=== PATIENT | female | born 1955 | race Caucasian/White ===

== ENCOUNTER 2020-07-07 09:54 | Outpatient (CLI) | payer BC, SELFPAY ==
--- NOTE | ~2020-07-07 | DEXA_ITS ---
Bone Density Report Name: Alice Green Age: 64 Sex: Female Ethnicity: White Date of : 1955 Indication: postmenopausal; height loss; Referring Provider: Carlos Manuel, Radha Borjas Study: Bone densitometry was performed. Exam Date: July 07, 2020 Accession number: [id number] Bone Density: Region BMD T-score Z-score Classification AP Spine (L1, L2, L3) 1.158 1.3 3.1 Normal Femoral Neck (Left) 0.876 0.2 1.8 Normal Total Hip (Left) 0.999 0.5 1.7 Normal Total Hip Bilateral Avg 1.002 0.5 1.8 Normal Femoral Neck (Right) 0.846 0.0 1.5 Normal Total Hip (Right) 1.003 0.5 1.8 Normal World Health Organization criteria for BMD impression classify patients as: Normal (T-score at or above -1.0), Osteopenia (T-score between -1.0 and -2.5), or Osteoporosis (T-score at or below -2.5). 10-year Fracture Risk: FRAX not reported because: All T-scores for Spine Total, Hip Total, Femoral Neck at or above -1.0 Clinical Information Provided by Patient: Patient maximum height was 63 Menopause Age: 52 No regular weight bearing exercise Drinks caffeinated beverages Onset of menses at age 12 Number of children 2 Impression: The patient has normal bone mass. Discussion: BONE DENSITY IS ABOVE THE MINIMUM DESIRABLE LEVEL AT ALL SKELETAL SITES TESTED. This patient?s bone mineral density is above the minimum desirable level (T-score -1.0 or better) at all sites measured. The patient should follow a healthful lifestyle (good nutrition with adequate calcium and vitamin D, and appropriate weight-bearing exercise). Follow-Up: Consider repeating this study in 5 years or sooner if there is some new clinical indication. Reported by: DEVIKA on 07/07/2020 10:18:00 AM. Reviewed, dictated and finalized at location A. [facility]
== END 2020-07-07 09:55 | disposition home or self-care (01) ==
LOC: ANHIMG 09:59
PROVIDERS: PCP Family Medicine; Visit Provider Nurse Practitioner Obstetrics & Gynecology
DX: Z13.820 Encounter for screening for osteoporosis (principal)
CPT/HCPCS: 77080

== ENCOUNTER 2021-02-26 09:33 | Outpatient (CLI) | payer BC, SELFPAY ==
--- NOTE | 2021-02-26 09:59 | ECG_ITS ---
Measurements Intervals [place] Rate: 80 P: 48 GA: 163 QRS: 30 QRSD: 88 T: 42 QT: 352 QTc: 407 Interpretive Statements SINUS RHYTHM DELAYED PRECORDIAL R/S TRANSITION LOW QRS VOLTAGE IN PRECORDIAL LEADS BORDERLINE ECG Electronically Signed On 02-26-2021 17:11:27 CDT by Arpan Byrne D.O.
[2021-02-26 10:05] LABS: Anion Gap 8 mmol/L (8-16); Blood Urea Nitrogen 22 mg/dL (7-17); Calcium 10.1 mg/dL (8.4-10.2); Carbon Dioxide 30 mmol/L (22-30); Chloride 104 mmol/L (98-107); Estimated Glomerular Filt Rate > 60; Glucose 171 mg/dL (65-110); Potassium 4.2 mmol/L (3.4-5.0); Sodium 142 mmol/L (137-145)
== END 2021-02-26 09:34 | disposition home or self-care (01) ==
LOC: ANHCARD 09:36
PROVIDERS: PCP Family Medicine; Visit Provider Anesthesiology
DX: Z01.818 Encounter for other preprocedural examination (principal); E11.9 Type 2 diabetes mellitus without complications; R94.31 Abnormal electrocardiogram [ECG] [EKG]
CPT/HCPCS: 36415; 80048; 93005

== ENCOUNTER 2021-03-04 01:38 | Day surgery (SDC) | payer BC, SELFPAY ==
[2021-02-21 10:32] VITALS: BMI 33.5
--- NOTE | 2021-03-03 10:40 | WPDANESEPPF ---
Anes - Initial Pre Proc Eval Procedure: Operation Date: 03/04/21 09:00 Proposed Procedures p Lapidus Bunionectomy Left Foot, Moshe Phalangeal Osteotomy Left Hallux - Mark Kline JR, MD Date/Time: 03/03/21 10:40 Surgeon: Mark Kline JR, MD Pre Op Diagnosis: Painful Bunion Left Foot Patient Data Age: 65 Gender: F Height: 1.57 m Weight: 83.18 kg Allergies Allergy/AdvReac Type Severity Reaction Status Date / Time ampicillin AdvReac Unknown Rash Verified 03/04/21 07:15 erythromycin base AdvReac Unknown Rash Verified 03/04/21 07:15 Penicillins AdvReac Unknown Rash Verified 03/04/21 07:15 Home Medications Medication Instructions Recorded Confirmed Type metformin 500 mg tablet,extended 500 mg PO BID #180 tablet 12/13/20 03/04/21 Rx release 24 hr rizatriptan 10 mg tablet See Rx Instructions PO .COMPLEX 01/12/21 03/04/21 Rx #27 tablet levothyroxine 88 mcg PO QAM 02/21/21 03/04/21 History Patient hx anesthesia problems: none Family hx anesthesia problems: none PMFSH Past Medical History Medical History (Updated 03/04/21 @ 08:19 by Jose Maria Sellers, ) Acute bronchitis Adult BMI 33.0-33.9 kg/sq m BMI 34.0-34.9,adult Chronic headaches Colon cancer screening Normal colonoscopy with Dr. Reyes at age 61 with recheck in 10 years Controlled diabetes mellitus, without long-term current use of insulin COVID-19 (~02/13/20) Diabetes type 2, controlled Encounter for wellness examination in adult GERD (gastroesophageal reflux disease) Hypersomnia Hypothyroidism, unspecified Irritable bowel syndrome with diarrhea Migraine without aura and responsive to treatment Mixed hyperlipidemia Osteoarthritis involving multiple joints on both sides of body Screening for osteoporosis (07/07/20) T-score 1.16 of the spine and 1.0 left hip and 1.0 right hip Seasonal allergic rhinitis Skin lesion Thyroid disorder Surgical History Surgical History H/O section (~1986) 2 one in 1986 and one in 1987 History of cholecystectomy (~1994) Hx of LASIK (~2001) Family History Family History Mother , 53 Breast cancer, Onset Age: 53 Father , 82 Throat cancer Hypertension Grandparent Breast cancer Sibling Throat cancer Liver failure Sibling Hypertension Social History Social History Smoking status: Never smoker Second hand tobacco smoke exposure: No Alcohol intake: never Substance use: never Substance use type: does not use Living arrangements: with family Spiritual care concerns: No Anes - Eval Final PreProcedure Day of Procedure 03/03/21 10:40 Patient weight: obese Heart: regular rate and rhythm Lungs: clear to auscultation and normal air movement Airway: Mallampati scale class II Neurological: alert and oriented Last oral intake: >/= 8 hours ASA classification: III Emergent: no Anesthetic plan: proceed Anesthesia type and monitoring: general GIVS and standard monitoring Informed Consent: The patient's anesthetic plan and its attendant risks and benefits were discussed with the patient/family/POA. Questions were solicited and answers provided to the satisfaction of the patient/family/POA.
[2021-03-04] VITALS (9 sets, daily range): BP systolic 121–147; BP diastolic 58–74; PULSE 65–90; RESP 9–20; TEMP 36.3–36.9; O2SAT 95–100; BMI 33.5
--- NOTE | ~2021-03-04 | XR_ITS ---
EXAMINATION: XR surgery orthopedic DATE: 03/04/2021 10:35 INDICATION: Left foot bunion. TECHNIQUE: 2 intraoperative fluoroscopic views of left foot were obtained. I was not present. Fluoros copy exposure time was 46 seconds. COMPARISON: None. FINDINGS: There are surgical changes of bunionectomy. There are changes of osteotomy of first proxima l phalanx with staple fixation. There are changes of arthrodesis of first tarsometatarsal joint with plate and screw fixation. A screw also passes through the first metatarsal into the medial, middle, a nd lateral cuneiforms. IMPRESSION: 1. Bunionectomy. Reviewed, dictated and finalized at location A. IMPRESSION: 1. Bunionectomy.
--- NOTE | 2021-03-04 07:11 | WPDHPUPDATE1 ---
History and Physical Update Update Date/Time: 03/04/21 07:11 History and Physical has been reviewed, including an updated exam of the patient. There are NO changes in the patient's condition. Risks, benefits, and alternatives have been discussed and questions answered. Patient agrees to proceed with procedure.
--- NOTE | 2021-03-04 07:18 | WPDANESPNB ---
Anes - Peripheral Nerve Block Date/Time: 03/04/21 07:18 I have discussed with the patient/family/POA the placement of a peripheral nerve block for post-operative pain management, including associated risks, benefits, complications, and side effects. Alternative methods of post-operative analgesia were detailed. Questions were solicited and answers provided to the satisfaction of the patient/family/POA. Time-Out: A pre-procedural Time-Out was completed immediately before starting the procedure and confirmed: Patient Identification, Site, Procedure, Patient Position and the Availability of Requisite Equipment. Clinical Indications: Acute post-operative pain management requested by the operative surgeon. Nerve Block Insertion Note Anes-nerve block: posterior fossa sciatic left and adductor canal left Patient position: supine (for adductor canal) and other (right lateral for popliteal) Skin prep: chlorhexidine Needle: 22 gauge, stimulating, insulated echogenic needle. Needle length: 80 mm Technique: nerve stimulation lost at (mA) (for popliteal lost at 0.2) and ultrasound Injectate: bupivacaine 0.5% with epi 5 mcg/ml (20 mL for popliteal, 10 mL for adductor canal (no epi)) Observations: tolerated well Complications: none Procedure start time:: 899 Procedure end time:: 906
[2021-03-04] MEDS: LACTATED RINGERS 1,000 ML 30 ML IV CONT ×2 (07:53→11:20)
[2021-03-04 07:57] LABS: Glucose Point of Care 127 mg/dl (65-105)
[2021-03-04] MEDS: ceFAZolin 2 GM/D5W 50 ML 2 GM/50 ML BAG IVPB (09:11)
[2021-03-04 11:12] LABS: Glucose Point of Care 133 mg/dl (65-105)
--- NOTE | 2021-03-04 11:23 | W.PM.PROC2 ---
Procedure Note - Detailed Date of Procedure 03/04/21 Pre-op Diagnosis Painful Bunion Left Foot Post-op Diagnosis same Procedure Performed 1. Lapidus bunionectomy left foot 2. Moshe phalangeal osteotomy left foot Surgeon Mark Kline JR, ELIDIAM Anesthesia general and regional (Popliteal fossa block left foot) Indications Painful bunion left foot Description of Procedure Under mild sedation, the patient was brought to the operating room, placed on the operating table in the supine position. A pneumatic ankle tourniquet was placed about the patient's ankle. Following general anesthesia and a previous popliteal fossa block, the foot was then scrubbed, prepped, and draped in the usual aseptic manner. An Esmarch bandage was then used to examine the patient's foot and pneumatic ankle tourniquet was then inflated. Surgery began in the following manner. Attention was directed to the dorsal aspect of the 1st metatarsocuneiform of the foot where fluoroscopy was used to identify the joint. A 3 cm incision was made overlying the dorsal aspect of the 1st metatarsocuneiform joint of the foot just medial to the extensor hallucis longus tendon. The incision was then continued deep down through the subcutaneous tissues using sharp and blunt dissection. All bleeders were ligated and cauterized as necessary. At this point, the extensor tendon was identified and reflected laterally. Next, the periosteum and capsular incision was made at the full length of the skin incision exposing the medial cuneiform as well as the base of the 1st metatarsal. Next, a sagittal bone saw was introduced from dorsal to plantar across the 1st metatarsocuneiform joint in order to free up any ankylosed portions of the joint and also to release any adhesions. Two Steinmann Pins were driven from dorsal to plantar 1cm proximal and distal to the 1st metatarsal cuneiform joint. The provided curved osteotome and curette was used to resect the cartilage and subchondral bone and a 2.0mm drill bit was used to fenestrate the joint to promote fusion. At this point, a small 2 cm incision was made along the lateral aspect of the 1st metatarsophalangeal joint of the left foot and a lateral release consisting of a lateral capsule incision as well as release of the adductor hallucis tendon with the tenotomy as well as releasing the distal aspect and lateral aspect and proximal aspect of the fibular sesamoid. After this, a lateral release was performed. The hallux was noted to be slightly reduced as far as the track-bound hallux. A 3m incision was made medial to the first metatarsal head extending proximal to the proximal phalanx. A 1.4mm Steinmann pin was driven from medial to lateral across the 1st metatarsal head. Next the Lapifuse positioner was used to obtain 3 plane correction of the hallux abductovalgus deformity. Fluoroscopy was used to make sure that the 1st MPJ was congruous and the sesamoid apparatus was centered under the first metatarsal. Next a 4mm cannulated screw was driven from the medial base of the 1st metatarsal to the central and lateral cuneiform bone. Excellent compression was noted, next a Lapifuse plate was placed dorsal medially along the 1st metatarsal cuneiform joint and 4 locking and one eccentrically drilled non locking screws was used to further compress the joint to ensure arthrodesis. At this point the positioner was removed and fluoroscopy was used to make sure that deformity correction was maintained. The patient still had slight hallux abductus so I made a closing medial base wedge resection from the base of the proximal phalanx and compressed the osteotomy with a [employer] 8mm nitinol compression staple. After the Moshe osteotomy the hallux was noted to be in a rectus position. The periosteum and capsular structures were reapproximated and coapted utilizing horizontal mattress as well as simple interrupted suture fashion technique along the 1st
== END 2021-03-04 13:25 | disposition home or self-care (01) ==
PROVIDERS: PCP Family Medicine; Visit Provider Podiatrist Foot & Ankle Surgery
PROC: (CPT 28299; principal; 2021-03-04 09:00)
DX: M21.612 Bunion of left foot (principal); G89.18 Other acute postprocedural pain; E11.9 Type 2 diabetes mellitus without complications; E78.2 Mixed hyperlipidemia; K21.9 Gastro-esophageal reflux disease without esophagitis; E03.9 Hypothyroidism, unspecified; K58.0 Irritable bowel syndrome with diarrhea; M19.90 Unspecified osteoarthritis, unspecified site; Z86.16 Personal history of COVID-19; Z79.84 Long term (current) use of oral hypoglycemic drugs; E66.9 Obesity, unspecified; Z68.33 Body mass index [BMI] 33.0-33.9, adult
CPT/HCPCS: 28297; 64445; 64447; 36415; 80048; 82948; 93005; C1713; J0690; J2250; J3010; J7120

== ENCOUNTER 2021-05-12 12:46 | Outpatient (CLI) | payer BC, SELFPAY ==
--- NOTE | ~2021-05-12 | US_ITS ---
EXAMINATION: US venous doppler [facility] EXAM DATE: 05/12/2021 13:31 INDICATION: Left lower extremity swelling. TECHNIQUE: Multiple grayscale, color flow and Doppler images of the left lower extremity deep venous system were obtained and reviewed. There is no prior study for comparison. FINDINGS: The left common femoral, femoral and profunda veins demonstrate normal color flow, respirat ory variation, augmentation and compressibility. Compressibility, color flow confirmed within the le ft popliteal, posterior tibial, peroneal, and greater saphenous veins. IMPRESSION: 1. No left lower extremity deep venous thrombosis. Reviewed, dictated and finalized at location B. [facility]
== END 2021-05-12 12:47 | disposition home or self-care (01) ==
PROVIDERS: PCP Family Medicine; Visit Provider Podiatrist Foot & Ankle Surgery
DX: M79.89 Other specified soft tissue disorders (principal)
CPT/HCPCS: 93971

== ENCOUNTER → 2022-07-25 15:11 | Outpatient (CLI) | payer MEDICARE, SELFPAY ==
--- NOTE | ~2022-07-25 | XR_ITS ---
EXAM: XR shoulder RT min 2V DATE: 07/25/2022 15:32 HISTORY: M25.511-Pain in right shoulder 6+months/no injury . COMPARISON: None available. FINDINGS: Decreased mineralization. No fracture or dislocation. No lytic or blastic lesion. Mild AC joint hypertrophy and degenerative change at the glenohumeral joint. No erosion or periosteal change. Soft tissues within normal limits. Calcified right midlung granuloma and right hilar lymph node. Inc idental note of multilevel degenerative disc disease in the thoracic spine. IMPRESSION: Mild polyarticular osteoarthritis. Reviewed, dictated and finalized at location K. [facility]
== END ==
PROVIDERS: PCP Family Medicine; Visit Provider Family Medicine
DX: M25.511 Pain in right shoulder (principal); M19.011 Primary osteoarthritis, right shoulder
CPT/HCPCS: 73030

== ENCOUNTER 2022-08-31 14:00 | Outpatient (RCR) | payer MEDICARE, SELFPAY ==
--- NOTE | 2022-08-17 15:54 | PTOPEVAL1 ---
Assessment and note entered by Jeffrey Hines, PT Evaluation Information Assessment Status Evaluation Diagnosis Pain in R shoulder. Onset 4-5 months ago. Subjective Information Patient reports she is experiencing increased pain in her shoulder going down the arm the further she reaches back into extension and internal rotation. The pain is normally felt in the deltoid but ocassionally down to the mid forearm. The patient is unable to scrub her back or clasp her bra with the R shoulder she is R handed. Reported Pain Level Pain Score 0: Self Report Assessment PT Clinical Summary Nidhi is a 66 year old female coming into the clinic with a diagnosis of R shoulder pain. She has a positive lift off and Neers test with negative empty can and resisted shoulder abduction. Decreased range of motion of internal rotation, shoulder abduction, and flexion. No significant weakness, but poor posture with rounded shoulders and a forward head. Physical therapy will work on improving her muscular alignment and posture to put her shoulder in better position along with stretching of the posterior capsule and pec muscles. Plan of Care Interventions Electrical Stimulation,Gait Training,Hot Pack/Cold Pack,Manual Therapy,Neuro Re-education,Patient/ Caregiver Education,Therapeutic Activities, Therapeutic Exercise,Ultrasound Other Interventions taping PT Services Indicated Yes Treatment Frequency and 1-2x/wk for 4 weeks Duration These treatments will address the objective and functional deficits as defined above. The patient will be advanced safely and appropriately in order for the patient to progress towards his/her prior level of function. Additional exercises will be introduced and as well as a comprehensive home exercise program upon discharge, if needed, ?to ensure carryover of functional gains achieved in the clinic. This treatment plan has been reviewed and agreement upon by the patient.
--- NOTE | 2022-09-07 15:32 | PCPTNOTE ---
Patient did not show up for scheduled appointment this date. Called number on file, unable to leave voicemail due to the mailbox being full. Pt's next appointment is on 09/14/22 @13:30 for a Reevaluation. This is Pt's first N/S.
--- NOTE | 2022-09-27 13:55 | PCPTNOTE ---
Patient called & cancelled scheduled appointment this date due to not feeling well.
--- NOTE | 2022-10-16 09:32 | PCPTNOTE ---
Admitting Provider: Attending Provider: Monico Lay MD Patient:Alice Ferro Date of :1955 Patient has not returned for any further treatments since 08/31/2022, therefore (he/she) will be discharged at this time. Patient?s initial visit was on 08/17/2022 13:30 and she had a total of ____2____ visits. The goals have been not met. Thank you for referring this patient to [facility]. Please review, sign, date and return this discharge summary ERROL. I have been updated about the patient's current status and I agree with discharge from the above service at this time. Referring Physician Date
== END 2022-10-16 11:41 | disposition home or self-care (01) ==
LOC: ANHPT 14:00
PROVIDERS: PCP Family Medicine; Visit Provider Family Medicine
DX: M25.511 Pain in right shoulder (principal)
CPT/HCPCS: 97110; 97140; 97161; 97530; 99199

== ENCOUNTER 2024-07-09 12:39 | Emergency (ER) | payer MEDICARE, SELFPAY ==
--- NOTE | ~2024-07-09 | XR_ITS ---
EXAMINATION: XR knee LT min 4V DATE: 07/09/2024 13:28 INDICATION: Left knee pain. TECHNIQUE: 4 views of left knee were obtained. COMPARISON: None. FINDINGS: There is varus attenuation the knee. No fracture. There is moderate osteoarthritis of media l compartment and mild osteoarthritis of lateral and patellofemoral compartments. There is a small kn ee joint effusion. IMPRESSION: 1. Moderate left knee osteoarthritis. 2. Small left knee joint effusion. Reviewed, dictated and finalized at location A. UP MACHINE OPERATOR
--- NOTE | ~2024-07-09 | US_ITS ---
EXAMINATION: US venous doppler [facility] DATE: 07/09/2024 13:21 INDICATION: Left lower limb pain. TECHNIQUE: Grayscale ultrasound images without and with compression and Doppler ultrasound images of the left lower extremity veins were obtained. COMPARISON: Ultrasound 05/12/2021 FINDINGS: The visualized portions of left common femoral vein, profunda (deep) femoral vein, femoral vein, popl iteal vein, peroneal veins, posterior tibial veins, and greater saphenous vein outflow are patent. IMPRESSION: 1. No deep venous thrombosis. Reviewed, dictated and finalized at location A. E AND WELD INSPECTOR
[2024-07-09 12:40] VITALS: BP 148/89; PULSE 88; RESP 16; TEMP 36.4; O2SAT 98
--- NOTE | 2024-07-09 12:45 | ED_ITS ---
HPI - Extremity Problem General Chief complaint: Extremity Problem,Nontraumatic Stated complaint: left knee pain Time Seen by Provider: 07/09/24 13:42 Focused HPI: 68-year-old female presents to the ED for a DVT rule out in her left lower extremity. Patient states she has known arthritis in her knees and has chronic pain, however began having increased knee pain a few days ago. She went to her PCP and was advised to come to the ED for DVT rule out. She is reporting pain to the posterior aspect of her knee and states it feels swollen within her joint. She has a known history of arthritis. No lower extremity edema, no recent surgeries or hospitalization, history of VTE. Denies fever. GENERAL: Well-appearing, well-nourished, and in no acute distress. HEAD: Normocephalic, atraumatic. CHEST: Clear to auscultation. ?No respiratory distress. EXT: Minimal tenderness to the posterior aspect of the knee, otherwise no tenderness to the remainder of extremity. No edema. Full active and passive range of motion. DP pulse 2 +. Sensation intact. Extremities pink, warm and dry HEART: Regular rate and rhythm.? NEURO: ?Alert and oriented x3. Patient screened in triage and initial orders placed.? ?Additional care and disposition to be based upon?diagnostic testing and treatment. History of Present Illness HPI Narrative: Agree with the above triage note. Related Data Allergies Allergy/AdvReac Type Severity Reaction Status Date / Time ampicillin AdvReac Unknown Rash Verified 06/21/23 13:38 erythromycin base AdvReac Unknown Rash Verified 06/21/23 13:38 Penicillins AdvReac Unknown Rash Verified 06/21/23 13:38 Review of Systems Review of Systems: All systems reviewed & are unremarkable except as noted in HPI and below PMFSH Past Medical History Medical History BMI 29.0-29.9,adult Overweight (BMI 25.0-29.9) Lipoma of back (~08/02/23) left lower thoracic area 3 cm Seborrheic keratosis on trunk and scalp BMI 30.0-30.9,adult Benign paroxysmal positional vertigo due to bilateral vestibular disorder At low risk for fall Acute left-sided low back pain without sciatica (~01/2023) Breast cancer screening by mammogram mammogram 11/07/2022 unremarkable. Normal mammogram 11/27/2023. Screening for diabetic retinopathy no diabetic retinopathy on 01/30/2022. No retinopathy on 02/27/2023. Obesity (BMI 30.0-34.9) Right shoulder pain (~11/2021) x-ray of the right shoulder on 07/25/2022 with mild osteoarthritis, osteopenia, degenerative disc disease of the thoracic spine, right mid lung granuloma. BMI 32.0-32.9,adult Bunion, left foot Diabetes type 2, controlled Irritable bowel syndrome with diarrhea BMI 34.0-34.9,adult Skin lesion Screening for osteoporosis (07/07/20) T-score 1.16 of the spine and 1.0 left hip and 1.0 right hip Adult BMI 33.0-33.9 kg/sq m COVID-19 (~02/13/20) Acute bronchitis Controlled diabetes mellitus, without long-term current use of insulin Glucose 128 with hemoglobin A1c 6.1 on 01/14/2022. Glucose 124 with hemoglob in A1c 6.3 on 07/19/2022. fasting glucose 125 with hemoglobin A1c 6.1 and urine microalbumin ratio of 11 on 01/25/2023. glucose 119 with hemoglobin A1c 6.0 on 07/31/2023. glucose 107, hemoglobin A1c 6.2, GFR 82, microalbumin ratio of 12 on 02/20/2024. Migraine without aura and responsive to treatment Encounter for wellness examination in adult Colon cancer screening Normal colonoscopy with Dr. Reyes at age 61 with recheck in 10 years Hypersomnia Mixed hyperlipidemia Total cholesterol 188, triglycerides 96, HDL 59 and LDL 110 on 01/14/2022. Cholesterol 201, triglycerides 121, HDL 67, LDL 111 on 07/19/2022. cholesterol 201, HDL 68, triglycerides 104, LDL 112 with ratio 3.0 on 01/25/2023. Cholesterol 191, HDL 64, triglycerides 87, LDL 109 with ratio 3.0 on 07/31/2023. Cholesterol 190, triglycerides 110, HDL 71, LDL 98 with ratio 2.7 on 02/20/2024. Hypothyroidism, unspecified TSH 0.89 with free T4 at 1.4 on 01/14/2022. TSH 0.57 on 01/25/2023. TSH 1.13 on 02/20/2024. Osteoarthritis involving multiple joints on both sides of body Abnormal fasting glucose Seasonal allergic rhinitis GERD (gastroesophageal reflux disease) Thyroid disorder Chronic headaches Surgical History Surgical History H/O section (~1986) 2 one in 1986 and one in 1987 Hx of LASIK (~2001) History of cholecystectomy (~1994) Family History Family History Mother , 53 Breast cancer, Onset Age: 53 Father , 82 Throat cancer Hypertension Grandparent Breast cancer Sibling Throat cancer Liver failure Sibling Hypertension Social History Social History Smoking status: Never smoker Second hand tobacco smoke exposure: No Alcohol intake: never Substance use: never Substance use type: does not use Lack of Transportation: No Lack of Food: Never True Current Housing: I Have Housing Concerned About Future Housing: No Difficulty Paying Gas/Electric Bills: No Difficulty Paying for Meds: No Currently Unemployed: No Education: High School Diploma/GED Difficulty w/ Childcare or Family Care: No Living arrangements: with family Spiritual care concerns: No Exam Narrative: GENERAL: Well-appearing, well-nourished, and in no acute distress. HEAD: Normocephalic, atraumatic. EYES: EOMI. ENT: Nares clear, no rhinorrhea or epistaxis. Mucous membranes moist. NECK: Supple. CHEST: Clear to auscultation. No respiratory distress. HEART: Regular rate and rhythm. No murmur heard. Normal peripheral pulses. EXTREMITIES: Minimal tenderness to the posterior aspect of the left knee, otherwise no tenderness throughout, no edema, no overlying skin changes or deformity. Patient has full active and passive range of motion with these. DP pulse 2 +. Sensation intact. No tenderness remainder of lower extremity. No edema to lower extremity. No overlying warmth or erythema SKIN: Warm, dry, no rash. NEURO: No focal deficits. Alert and oriented x3 Course Vital Signs Vital signs: Vital Signs Temperature 97.6 F 07/09/24 12:40 Pulse Rate 88 07/09/24 12:40 Respiratory Rate 16 07/09/24 12:40 Blood Pressure 148/89 H 07/09/24 12:40 Pulse Oximetry 98 07/09/24 12:40 Oxygen Delivery Room Air 07/09/24 12:40 Temperature 97.6 F 07/09/24 12:40 Pulse Rate 88 07/09/24 12:40 Respiratory Rate 16 07/09/24 12:40 Blood Pressure 148/89 H 07/09/24 12:40 Pulse Oximetry 98 07/09/24 12:40 Oxygen Delivery Room Air 07/09/24 12:40 MDM - Extremity (Nontraumatic) MDM Narrative Medical decision making narrative: 68-year-old female with history of known arthritis to her knees presents to the ED for left knee pain and DVT rule out per her PCP. Triage vitals are stable. Exam is significant for the above. Notably patient has minimal tenderness to the posterior aspect of the knee. She has full active and passive range of maryuri on of the knee with ease. She is neurovascularly intact. No edema. No overlying warmth or erythema concerning for septic arthritis. X-ray of the knee shows a moderate amount of osteoarthritis as well as a small knee joint effusion. Lower extremity duplex is negative for DVT. Patient was updated on workup. She is given an Danilo wrap, advised Tylenol for pain, RICE, and follow-up with PCP. Return precautions discussed. She is agreeable to plan verbalized understanding. Discharged in stable condition. Discharge Plan Discharge Clinical Impression: Effusion of knee joint, left Osteoarthritis of left knee Qualifiers: Osteoarthritis type: unspecified Qualified Code(s): M17.12 - Unilateral primary osteoarthritis, left knee Patient Disposition: Home, Self-Care Condition: Stable Instructions: Antibiotic Form, Swollen Knee Joint (ED), Knee Pain (ED), Arthritis (ED) Additional Instructions: Your evaluated for knee pain and to rule out a DVT. The ultrasound shows no evidence of DVT. The x-ray shows moderate arthritis as well as a small amount of swelling in the knee joint. This is likely secondary to arthritis. Please rest, ice, elevate and keep her knee compressed. Take Tylenol as needed for pain as directed on the bottle. Follow up with her primary care provider. Return to the emergency department if you develop inability to move your knee, fever, warmth or redness over your knee joint, swelling to the rest of your leg, calf pain, or other concerning symptoms. Patient Language: Tanzanian Prescriptions: No Action meclizine 25 mg tablet 25 mg PO TID PRN (Reason: vertigo) Qty: 60 0RF levothyroxine 88 mcg tablet 88 mcg PO QAM Qty: 90 3RF metformin 500 mg tablet extended release 24 hr 500 mg PO BID Qty: 180 3RF rizatriptan [Maxalt] 10 mg tablet See Rx Instructions PO .COMPLEX Qty: 9 11RF Rx Instructions: take 1 tab at onset of headache; if no relief may repeat 1 tab in 2hr; max = 3 tabs/day (24hr) PO cyclobenzaprine 5 mg tablet 5 mg PO TID PRN (Reason: muscle spasm) Qty: 60 11RF Follow-up/Referrals: Monico Lay MD [Primary Care Provider] -
== END 2024-07-09 14:00 | disposition home or self-care (01) ==
LOC: ANHED 14:00
PROVIDERS: Emergency Provider Physician Assistant; PCP Family Medicine
DX: M25.462 Effusion, left knee (principal); M17.12 Unilateral primary osteoarthritis, left knee; M79.89 Other specified soft tissue disorders
CPT/HCPCS: 73564; 93971; 99284

== ENCOUNTER 2024-11-27 00:13 | Day surgery (SDC) | payer MEDICARE, SELFPAY ==
[2024-11-20 13:00] VITALS: BMI 30.2
--- OUTSIDE RECORDS SUMMARY | 2024-11-27 00:16 | XMS_ITS | Encounter Summary ---
Author Organization [employer] Address [address] [place] [address] Care Team Providers Care Automotive Service Management Teacher Name Role Phone Marin Mcpherson MD Primary Care Provider [phone] Encounter Details Date Type Department Care Team (Latest Contact Info) Description 06/13/2005 Outpatient Historical HIS PATIENT IN A BED Gustavo Ojeda MD NO ADDRESS ON FILE OTOSCLEROSIS NOS (Primary Dx) Social History Tobacco Use Types Packs/Day Years Used Date Smoking Tobacco: Never Assessed Comments Unknown Sex and Gender Information Value Date Recorded Sex Assigned at Not on file Legal Sex Female 3:28 AM MEDICAL SCHEDULER Gender Identity Not on file Sexual Orientation Not on file documented as of this encounter Plan of Treatment Not on file documented as of this encounter Procedures Procedure Name Priority Date/Time Associated Diagnosis Comments CBC WITH DIFFERENTIAL Routine 06/12/2005 11:35 AM MEDICAL SCHEDULER CBC WITH DIFFERENTIAL Routine 06/12/2005 11:35 AM MEDICAL SCHEDULER BASIC METABOLIC PANEL Routine 06/12/2005 11:35 AM MEDICAL SCHEDULER documented in this encounter Results * (ABNORMAL) BASIC METABOLIC PANEL (06/12/2005 11:35 AM MEDICAL SCHEDULER) GLUCOSE 126(H) 65 - 109 mg/dL INTERFACE SYSTEM CREATININE 1.0 0.4 - 1.2 mg/dL INTERFACE SYSTEM CALCIUM 9.0 8.6 - 10.2 mg/dL INTERFACE SYSTEM BUN 15 6 - 20 mg/dL INTERFACE SYSTEM SODIUM 140 135 - 145 mmol/L INTERFACE SYSTEM POTASSIUM 3.7 3.5 - 4.9 mmol/L INTERFACE SYSTEM CHLORIDE 103 96 - 108 mmol/L INTERFACE SYSTEM CO2 29 22 - 30 mmol/L INTERFACE SYSTEM 06/12/2005 11:3 5 AM MEDICAL SCHEDULER Gustavo Ojeda MD CHEMISTRY ORDERABLES Final Resu lt Performing Organization Address [facility] Phone Number INTERFACE SYSTEM Refer to clinic/hospital department * CBC WITH DIFFERENTIAL (06/12/2005 11:35 AM MEDICAL SCHEDULER) NEUTROPHILS 51 45 - 70 % INTERFAC E SYSTEM LYMPHOCYTES 41 16 - 45 % INTERFAC E SYSTEM MONOCYTES 7 3 - 13 % INTERFACE SYSTEM EOSINOPHILS 1 0 - 7 % INTERFAC E SYSTEM BASOPHILS 1 0 - 2 % INTERFACE SYSTEM NEUTROPHIL ABSOLUTE 2.65 1.90 - 7.00 K/uL INTERFACE SYSTEM LYMPHOCYTE ABSOLUTE 2.14 0.70 - 4.50 K/uL INTERFACE SYSTEM MONOCYTE ABSOLUTE 0.35 0.10 - 1.30 K/uL INTERFACE SYSTEM EOSINOPHIL ABSOLUTE 0.06 0.00 - 0.70 K/uL INTERFACE SYSTEM BASOPHILS ABSOLUTE 0.04 0.00 - 0.20 K/uL INTERFACE SYSTEM 06/12/2005 11:3 5 AM MEDICAL SCHEDULER Gustavo Ojeda MD HEMATOLOGY ORDERABLES Final Res ult Performing Organization Address [facility] Phone Number INTERFACE SYSTEM Refer to clinic/hospital department * CBC WITH DIFFERENTIAL (06/12/2005 11:35 AM MEDICAL SCHEDULER) WBC 5.2 4.0 - 9.8 K/uL INTERFACE SYSTEM RBC 4.15 3.90 - 4.90 M/uL INTERFACE SYSTEM HEMOGLOBIN 12.9 11.8 - 14.8 g/dL INTERFACE SYSTEM HEMATOCRIT 38.9 35.5 - 44.0 % INTERFACE SYSTEM MCV 93.7 82.0 - 99.0 fL INTERFACE SYSTEM MCH 31.1 27.2 - 32.6 pg INTERFACE SYSTEM MCHC 33.2 31.5 - 35.5 % INTERFACE SYSTEM RDW 13.5 11.5 - 14.5 % INTERFACE SYSTEM RDW-STDEV 46.6 37.1 - 48.7 fL INTERFACE SYSTEM PLATELETS 303 140 - 350 K/uL INTERFACE SYSTEM MPV 10.1 9.3 - 12.4 fL INTERFACE SYSTEM 06/12/2005 11:3 5 AM MEDICAL SCHEDULER us Gustavo Ojeda MD HEMATOLOGY ORDERABLES Final Res ult INTERFACE SYSTEM Refer to clinic/hospital department documented in this encounter Visit Diagnoses Diagnosis Otosclerosis, unspecified- Primary documented in this encounter Care Teams Automotive Service Management Teacher Relationship Specialty Start Date End Date Marin Mcpherson MD [address] [place] [address] PCP - General 06/13/05 documented as of this encounter
--- OUTSIDE RECORDS SUMMARY | 2024-11-27 00:16 | XMS_ITS | Clinical Summary ---
Author Organization [employer] Address [address] [address] Attn: Epic Prelude ADT JAIME GALLO [address] Care Team Providers Care Blood Bank Business Manager Name Role Phone Marin Mcpherson MD Primary Care Provider [phone] Social History Tobacco Use Types Packs/Day Years Used Date Smoking Tobacco: Never Assessed Comments Unknown Sex and Gender Information Value Date Recorded Sex Assigned at Not on file Legal Sex Female 3:28 AM DOWN FILLER Gender Identity Not on file Sexual Orientation Not on file Plan of Treatment Health Maintenance Due Date Last Done Comments DTAP/TDAP/TD VACCINES (1 - Tdap) 1973 BREAST CANCER SCREENING 1994 COLORECTAL SCREENING 09/05/1999 Colorectal Cancer Screening 09/05/1999 FIT-DNA Q 3 years 09/05/1999 FIT/FOBT Q 1 year 09/05/1999 Flex Sig/CT Colonography Q 5 years 09/05/1999 PNEUMOCOCCAL VACCINE 50+ YEARS (1 of 1 - PCV) 09/05/19 05 ZOSTER VACCINE (1 of 2) 2004 OSTEOPOROSIS SCREENING 09/05/2019 INFLUENZA VACCINE (#1) 2024 RSV VACCINE (60+ or ) (1 - 1-dose 75+ series) 2029 Care Teams Blood Bank Business Manager Relationship Specialty Start Date End Date Marin Mcpherson MD [address] [place] [address] PCP - General 06/13/05
--- OUTSIDE RECORDS SUMMARY | 2024-11-27 00:16 | XMS_ITS | Referral Summary ---
Author Organization [facility] Address [address] [place] [address] Care Team Providers Care Medical Oncologist Name Role Phone Monico Lay MD Primary Care Provider [phone] Allergies Active Allergy Reactions Criticality Noted Date Comments Ampicillin Other (See comments) Low 09/08/2020 Erythromycin Rash Medium 02/27/2017 Erythromycin Base Unknown 09/08/2020 Penicillins Rash Medium 02/27/2017 Medications levothyroxine (SYNTHROID, LEVOTHROID) 88 mcg tablet Take 1 tablet (88 mcg total) by mouth every morning 3 8 Active metFORMIN XR (GLUCOPHAGE XR) 500 mg 24 hr tablet Take 1 tablet (500 mg total) by mouth 2 (two) times a day 4 8 Active rizatriptan (MAXALT) 10 mg tabletIndicatio ns:Migraine TAKE 1 TABLET ONCE A DAY NEEDED 11 8 Active levothyroxine (SYNTHROID) 175 mcg tablet Active Farxiga 10 mg tablet Take 1 tablet (10 mg total) by mouth daily 1 Active meloxicam (MOBIC) 15 mg tablet Take 1 tablet (15 mg total) by mouth daily as needed 3 Active oxyCODONE-aceta minophen (PERCOCET) 5-325 mg per tablet oxycodone-aceta minophen 5 mg-325 mg tablet TAKE 1 TABLET BY MOUTH EVERY 4 TO 6 HOURS NEEDED FOR PAIN AFTER SURGERY Active rivaroxaban (Xarelto) 10 mg tablet Xarelto 10 mg tablet TAKE 1 TABLET BY MOUTH EVERY DAY START 24HRS AFTER SURGERY Active diclofenac DR (VOLTAREN) 75 mg EC tablet diclofenac sodium 75 mg tablet,delayed release TAKE 1 TABLET BY MOUTH EVERY DAY Active Active Problems Problem Noted Date Diagnosed Date Family history of breast cancer 11/04/2021 Fibrocystic breast changes of both breasts 03/28 Social History Tobacco Use Types Packs/Day Years Used Date Smoking Tobacco: Former Smokeless Tobacco: Never Tobacco Cessation:Counseling Given: Not Answered Alcohol Use Standard Drinks/Week Comments No 0 (1 standard drink = 0.6 oz pur e alcohol) Personal Safety Answer Date Recorded Getting School Help Needed Not on file 08/18 Comments No Sex and Gender Information Value Date Recorded Sex Assigned at Not on file Legal Sex Female 7:59 AM FACTORY WORKER Gender Identity Not on file Sexual Orientation Not on file Last Filed Vital Signs Vital Sign Reading Time Taken Comments Blood Pressure - - Pulse - - Temperature - - Respiratory Rate - - Oxygen Saturation - - Inhaled Oxygen Concentration - - Weight 90.7 kg (200 lb) 11/07/2022 1:42 PM CDT Height 160 cm (5' 3) 11/07/2022 1:42 PM CDT Body Mass Index 35.43 11/07/2022 1:42 PM CDT Plan of Treatment Not on file Procedures Procedure Name Priority Date/Time Associated Diagnosis Comments SCREENING MAMMOGRAM BILATERAL W HERO Schedule Routine, Read Routine (OP Routine) 11/27/2023 3:02 PM CDT Family history of breast cancer Encounter for screening mammogram for malignant neoplasm of breast from Last 3 Months or Most Recently Relevant to Health Maintenance Results * Screening Mammogram Bilateral W Hero (11/27/2023 3:02 PM CDT) Anatomical Region Laterality Modality Breast Bilateral Mammography Narrative 11/28/2023 10:11 AM CDT Mammogram Technique: Bilateral Digital Breast Tomosynthesis, Bilateral C-view 2D Screening mammogram. Views obtained: bilateral craniocaudal and bilateral mediolateral oblique. Computer Aided Detection was performed. Mammogram Findings: The present examination has been compared to prior imaging studies performed at [facility] on 09/08/2020, 11/02/2021 and 11/07/2022. There are scattered areas of fibroglandular density. There is no suspicious abnormality in either breast. Impression: There is no mammographic evidence of malignancy. Annual screening mammography is recommended. OVERALL FINAL ASSESSMENT: BI-RADS CATEGORY 1: Negative. Procedure Note Sonia Clark MD - 11/28/2023 Mammogram Technique: Bilateral Digital Breast Tomosynthesis, Bilateral C-view 2D Screening mammogram. Views obtained: bilateral craniocaudal and bilateral mediolateral oblique. Computer Aided Detection was performed. Mammogram Findings: The present examination has been compared to prior imaging studies performed at [facility] on 09/08/2020, 11/02/2021 and 11/07/2022. There are scattered areas of fibroglandular density. There is no suspicious abnormality in either breast. Impression: There is no mammographic evidence of malignancy. Annual screening mammography is recommended. OVERALL FINAL ASSESSMENT: BI-RADS CATEGORY 1: Negative. Mary Rogers NP IMG MAMMO PROCEDURES Fin al Result from Last 3 Months or Most Recently Relevant to Health Maintenance Insurance [employer] CHOICE MEDICARE PPO [facility] CHOICE PLUS CHOICE PRF PPO [place] ANTH ACCESS BLUE TRADITIONAL [employer]OS MEDICARE MEDICARE [employer] CHOICE MEDICARE PPO Care Teams Medical Oncologist Relationship Specialty Start Date End Date Monico Lay MD [address] [address] PCP - General 08/15/19
--- OUTSIDE RECORDS SUMMARY | 2024-11-27 00:16 | XMS_ITS | Clinical Summary ---
Author Organization [facility] Address [address] [place] [address] Care Team Providers Care Inventory Coordinator Name Role Phone Marin Mcpherson MD Primary Care Provider [phone] Source Comments [facility],non-owned Affiliates and Associated Physician Practices is amultiple site organization consisting of ambulatory clinics and hospital sitesin [place], [place], [place] and [place]. This disclosure is being madepursuant to the Care Everywhere program and may not contain all information available regarding this patient. Last updated 18.[facility] Allergies Active Allergy Reactions Criticality Noted Date Comments Erythromycin 06/26/2016 Penicillins 06/26/2016 Medications * Be aware that medications may not be up to date on this document. Alwaysverify current medications with the patient. LEVOTHYROXINE SODIUM PO Active Social History Tobacco Use Types Packs/Day Years Used Date Smoking Tobacco: Never Comments Unknown Sex and Gender Information Value Date Recorded Sex Assigned at Not on file Legal Sex Female 4:09 PM NEONATAL ICU COORDINATOR Gender Identity Not on file Sexual Orientation Not on file Last Filed Vital Signs Vital Sign Reading Time Taken Comments Blood Pressure 126/80 06/26/2016 9:33 AM NEONATAL ICU COORDINATOR Pulse 102 06/26/2016 9:44 AM NEONATAL ICU COORDINATOR Temperature 36.8 C (98.3 F) 06/26/2016 9:33 AM NEONATAL ICU COORDINATOR Respiratory Rate - - Oxygen Saturation - - Inhaled Oxygen Concentration - - Weight 90.3 kg (199 lb) 06/26/2016 9:33 AM NEONATAL ICU COORDINATOR Height 160 cm (5' 3) 06/26/2016 9:33 AM NEONATAL ICU COORDINATOR Body Mass Index 35.25 06/26/2016 9:33 AM NEONATAL ICU COORDINATOR Plan of Treatment Health Maintenance Due Date Last Done Comments BONE DENSITY TESTING 1954 COLOGUARD (AGES 45-75) - COL ON CA SCREENING 1954 COLON MONITORING 1954 COLONOSCOPY - COLON CA SCREENING 1954 CT COLONOGRAPHY - COLON CA SCREENING 1954 Colorectal Cancer Screening 1954 FIT - COLON CA SCREENING 1954 FLEX SIG - COLON CA SCREENING 1954 LIPID TESTING 1954 MAMMOGRAM 1954 HEPATITIS C SCREENING 08/30/1972 DTAP/TDAP/TD VACCINES (1 - Tdap) 1973 PNEUMOCOCCAL VACCINE 50+ (1 of 1 - PCV) 2004 ZOSTER VACCINE (1 of 2) 2004 COVID-19 VACCINE (1 - 2023-2 5 season) 2024 DEPRESSION SCREENING 06/25/2024 INFLUENZA VACCINE (Season Ended) 2025 Respiratory Syncytial Virus (RSV) Vaccine Pt: or over 60 yrs (1 - 1-dose 75+ series) 2029 HEPATITIS B VACCINE Aged Out No longe r eligible based on patient's age to complete this topic HIB VACCINE Aged Out No longer eligi ble based on patient's age to complete this topic HPV VACCINE Aged Out No longer eligi ble based on patient's age to complete this topic MENINGOCOCCAL (Group B) VACC INE SHARED DECISION-MAKING Aged Out No longer eligibl e based on patient's age to complete this topic MENINGOCOCCAL GROUPS A/C/Y/W VACCINE Aged Out No longer eligible b ased on patient's age to complete this topic Insurance [facility] [place] [address] Care Teams Inventory Coordinator Relationship Specialty Start Date End Date Marin Mcpherson MD [facility] [place] [address] PCP - General Family Medicine 06/26/16
--- OUTSIDE RECORDS SUMMARY | 2024-11-27 00:16 | XMS_ITS | Data Portability ---
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 Patient will come back in a year unless there are new symptoms. [email or web address] Not available 12/03/2019 12:44:20 12/23/2020 12/23/2020 Annual gynecological exam performed. Patient will come back in a year unless there are new symptoms. Not available 12/15/2020 15:00:05 05/29/2024 05/29/2024 Annual gynecological exam performed. Patient will come back in a year unless there are new symptoms. [email or web address] Not available 04/02/2024 14:20:06 Plan of Treatment Reminders Order Date Submit Date Provider Last Modified By Organization Details Last Modified Time Details Appointments WELL WOMAN-EST 2024 11:30A BO Watters Not available Not available Not available Lab None recorded. Referral None recorded. Procedures None recorded. Surgeries None recorded. Imaging DEXA, axial skeleton + vertebral fracture assessmen t 2023 024 [facility] Scheduling, [address], [place], [address], 06/05/2024 04:07:51 MAMMO, screening , digital, bilateral 2023 024 [facility] Scheduling, [address], [place], [address], 06/05/2024 04:07:51 DEXA, axial skeleton + vertebral fracture assessmen t 2019 020 [facility], [facility], [place], [address], 07/15/2020 14:05:30 Medication Orders None recorded. Patient TargetsNo targets recorded. Patient Instructions Encounter Date Encounter Id Patient Instructions Last Modified By Organization Details Last Modified Time 12/03/2019 [id number] [email or web address] Not available 13:12:27 Reason for Referral None Reported. Results Created Date Observation Date Name Description Value Unit Range Abnormal Flag Note LastModifiedBy Organization Detail LastModifiedTime 12/04/19 20 12/08/2019 pap, LB Pap test thin prep Negati ve for Intrae pithel ial Lesion or Malign michelle normal ACCES CHRIS #: [id number] Sourc e: Cervi sarah/E ndoce rvica l LMP: 06/25 Date Taken : 12/03 Speci men Type: ThinP rep Vial Date Repor orestes: 2019 Clini sarah Data: Cytot ech: Nic Oseguera x, CT( CP) Date Repor orestes: 2019 Speci men Adequ acy: Satis facto ry for evalu ation Gener al Categ oriza tion: NEGAT ALDO FOR INTRA EPITH ELIAL LESIO N OR MALIG EPI Inter preta tion/ Resul t: Atrop hy This speci men has been charlie zed by the ThinP rep Imagi ng Syste m, an inter activ e compu ter syste m which wendy ts the lab in the scree james of ThinP rep Pap Test slide sGail dunham imagi ng, the slide was revie wed by a Cytot echno logis t and/o r Patho logis t. D N A A S S A Y S R E P O R T TEST NAME RESUL TS ----- ---- ----- -- HPV High Risk Scree n (TMA) ThinP rep Vial The human papil lomav irus (HPV) High Risk Scree n is an FDA-a pprov ed in-vi tro ampli fied nucle ic acid test for the quali tativ e detec tion of E6/E7 viral mRNA. Resul ts shoul d be corre lated with patie nt prese ntati on, histo ry, cervi sarah cytol ogy and other clini sarah and labor atory findi ngs. See https ://Fusion Antibodies/s ites/ defau lt/fi -0 - [id number] _002_ 01.pd f for furth er infor matio n. Test perfo rmed by [facility], d/b/a Gisel adams, [address], [place] [address] , Pauline Ortega ra, , Labor atory Direc tor. HPV High Risk *HPV NOT DETEC ORESTES (TYPE S 16, 18, 31, 33, 35, 39, 45, 51, 52, 56, 58, 59, 66, 68) *HPV: The human papil lomav irus (HPV) High Risk Camila nino is an FDA-a pprov ed in-vi tro ampli fied nucle ic acid test for the quali tativ e detec tion of E6/E7 viral mRNA. Resul karen ceron d be corre lated with patie nt prese ntati on, histo ry, cervi sarah cytol ogy and other clini sarah and labor atory findi ngs. See https ://AddThis. Allostatix/s ites/ defau lt/fi -0 - 10363 _002_ 01.pd f for furth er infor matio n. Test perfo rmed by [facility], d/b/a Gisel adams, [address], [place] [address] , Pauline Ortega ra, , Labor atory Direc tor. End of Repor t Techn ical servi alem provi ded by [facility], d/b/a Gisel adams, [address] [place] [address] Stewart Goddard MD, Labor atory Direc tor. Case revie wed and diagn osis rende red at [facility], d/b/a [facility], [address] [place] [address] Stewart Goddard MD, Labor atory Dire tor. CONFI DENTI AL Not Available [facility] [address], [place], [address], 12/08/2019 14:23:51 12/04/19 20 12/05/2019 HPV DNA, high- risk HPV high risk NOT DETECT ED normal Not Available [facility] ([facility]) [address], [place], [address], 12/08/2019 14:23:52 01/12/20 22 01/11/2022 IMAGE GUIDE D PAP AND HPV REGAR DLESS image guided Pap, HPV regardless of Pap result SEE RESULT S BELOW CASE REPOR T: Cytol ogy Gynec ologi sarah Repor t Case: [id number] Autho marcio abbasi Provi mayra: Jamie Costa Colle cted: 01/11 1316 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 Inade quate squam ous epith elial compo nent for diagn osis. Elect lamonte perdue karissa d by Fletcher Alas on 2021 at 4:12 PM ----- ----- ----- ----- ----- ----- ----- ----- ----- ----- ----- ----- ----- ----- ----- ----- ----- ---- HPV RESUL TS: HPV mRNA E6/E7 : No HPV mRNA Detec orestes NOTE: This high risk HPV mRNA assay detec ts fourt een high- risk HPV types (16, 18, 31, 33, 35, 39, 45, 51, 52, 56, 58, 59, 66, 68) witho ut diffe renti ation . COMME NT: Note: Slide scree shannon lolitaa lly due to rejec tion by Thinp rep Imagi ng Syste m CLINI SARAH INFOR MATIO N: Menst rual Statu s: LMP (if appli cable ): Clini sarah Histo ry/Pr eviou s Pap: Type of Neopl kelley (if appli cable ): Signi fican t Clini sarah Findi ngs: Other Histo ry: Hormo jailene (if appli cable ): Not Available [facility] [address] [place], [address], 01/17/2022 17:15:37 07/15/19 21 DEXA, axial skele ton + verte bral fract ure asses sment No observ ation record ed. [facility] [address] [place] [address], [place], [address], 07/20/2020 17:49:29 Result Notes None recorded. Problems Name Problem SNOMED Code Status Onset Date Resolution Date Notes Provider Name and Address Organization Details Recorded Time Adult health examinat ion Completed 201412/15/2020 Routine general medical examinati on at a health care facility; Practice ID: 0001 Deya perales [facility] 15:07:40 Speciali zed medical examinat ion Completed 201412/15/2020 Routine gynecolog ical examinati on;Practi ce ID: 0001 Deya perales [facility] 15:07:58 Screenin g for malignan t neoplasm of rectum Completed 201412/15/2020 Screening for malignant neoplasms of the rectum;Pr actice ID: 0001 Deya De La Rosa [facility] 15:07:[address] Concept Completed 201512/15/2020 Encntr for general adult medical exam w/o abnormal findings; Practice ID: 0001 Deya De La Rosa [facility] 15:07:[address] Concept Completed 201512/15/2020 Encntr for gyn physician exam (general) (routine) w/o abn findings; Practice ID: 0001 Deya De La Rosa [facility] 15:07:56 Screenin g for malignan t neoplasm of cervix Completed 201012/15/2020 Screening for malignant neoplasms of the cervix;Re corded Elsewhere : No Locati on: [facility]: EHR Chron ic: N Practic e ID: 0001 Bill able Time: 09:30:00 AM [facility] 15:07:51 Polyp of corpus uteri [id number] Completed 201112/15/2020 Polyp Endometri al Uterus;Pr actice ID: 0001 De[address] [facility] 15:07:50 Mucous polyp of cervix 97643151 Completed 201112/15/2020 Mucous polyp of cervix;Pr actice ID: [address] [facility] 15:07:47 Microsco pic hematuri a [id number] Completed 201312/15/2020 HEMATURIA MICROSCOP IC;Practi ce ID: 0001 Deya De La Rosa [facility] 15:07:46 Obesity 786987443 Completed 201412/15/2020 Obesity, unspecifi ed;Practi ce ID: 0001 Deya De La [address] [facility] 15:07:48 Elevated blood-pr essure reading without diagnosi s of hyperten chris [id number] Completed 201412/15/2020 Elevated blood pressure reading without diagnosis of hypertens ion;Pract ice ID: 0001 Deya De [address] [facility] 15:07:43 Mammogra phy abnormal [id number] Completed 201412/15/2020 Unspecifi ed abnormal mammogram ;Recorded Elsewhere : No Locati on: [facility]: EHR Chron ic: N Practic e ID: 0001 Bill able Time: 12:03:09 PM Deya perales [facility] 15:07:44 Body mass index 30+ - obesity [id number] Completed 201612/15/2020 Body mass index (BMI) 37.0-37.9 , adult;Rec orded Elsewhere : No Locati on: [facility]: EHR Chron ic: N Practic e ID: 0001 Bill able Time: 10:15:00 AM Deya perales [facility] 15:07:41 Problem Notes None recorded. Procedures Surgical History Date Name Laterality Status Provider Name and Address Organization Details Recorded Time 01/12/20 22 Date of Last Pap Smear completed Kailee Goldberg [facility] 04/02/2024 14:19:12 06/25/19 22 Date of Last Mammogram completed Deya [facility] 01/11/2022 13:34:28 09/30/19 15 completed Deya [facility] 12/23/2020 11:52:54 Cholecystectomy completed Nancy Dia [facility] 12/03/2019 12:47:25 removal of implant of middle ear completed Nancy Dia [facility] 12/03/2019 12:47:36 Imaging Results None recorded. Procedure Notes None recorded. Medical Equipment None Reported. Allergies Allergen ID Allergen Name Allergen Category Reaction Reaction Severity Criticality Documentation Date Start Date Code Code System Note Provider Name and Address Organization Details Recorded Time 946 Maxalt medicatio n Not available Not available Not available 12/03/2019 16004 8 RxNorm [facility] 0 12:44:59 947 Synthroid medicatio n Not available Not available Not available 12/03/2019 47343 0 RxNorm [facility] 0 12:45:00 948 ampicilli n medicatio n Not available Not available Not available 12/03/2019 733 RxNorm [facility] 0 12:45:05 949 erythromy yazmin medicatio n Not available Not available Not available 12/03/2019 4053 RxNorm [facility] 0 12:45:19 950 Product containin g penicilli n (product) medicatio n Not available Not available Not available 12/03/2019 52450 8001 SNOMED [facility] 0 12:45:26 Medications Name Sig Start Date Stop Date Status Note LastModified by Organization Details LastModified Time benzonata te 200 mg capsule TAKE 1 CAPSULE BY MOUTH THREE TIMES A DAY NEEDED FOR COUGH 12/23 completed Not Available Not Available Not Available meloxicam 15 mg tablet TAKE 1 TABLET BY MOUTH EVERY DAY NEEDED FOR PAIN 05/29 completed Not Available Not Available Not Available rizatript an 10 mg tablet TAKE 1 TAB AT ONSET OF HEADACHE IF NO RELIEF MAY REPEAT 1 TAB IN 2HR MAX = 3 TABS/DAY (24HR) active Not Available Not Available No t Available metronida zole 500 mg tablet TAKE 1 TABLET BY MOUTH TWICE A DAY UNTIL GONE 01/11 completed Not Available Not Available Not Available ciproflox acin 500 mg tablet TAKE 1 TABLET BY MOUTH TWICE A DAY UNTIL GONE 01/11 completed Not Available Not Available Not Available oxycodone -acetamin ophen 5 mg-325 mg tablet TAKE 1 TABLET BY MOUTH EVERY 4 TO 6 HOURS NEEDED FOR PAIN AFTER SURGERY 04/02 completed Not Available Not Available Not Available levothyro xine 88 mcg tablet TAKE 1 TABLET BY MOUTH EVERY DAY IN THE MORNING active Not Available Not Available No t Available Synthroid 25 mcg tablet take 1 tablet by oral route every day 06/07 completed Prescrib ed Elsewher e: Yes Loca tion: [facility] odify By: [email or web address] hameed DateTime : 03/15/20 16 11:30:00 AM Not Available Not Available Not Available dexametha sone 4 mg tablet TAKE 1 TABLET BY MOUTH DAILY 12/23 completed Not Available Not Available Not Available Maxalt 5 mg tablet take 1 tablet by oral route once, may repeat at 2 hour interval s; do not exceed 30 mg in 24 hours 01/11 completed Prescrib ed Elsewher e: Yes [facility] By: monica giang DateTime : 06/06/20 11 09:30:00 AM Not Available Not Available Not Available diclofena c sodium 75 mg tablet,de layed release TAKE 1 TABLET BY MOUTH EVERY DAY active Not Available Not Available No t Available levofloxa yazmin 500 mg tablet TAKE 1 TABLET BY MOUTH EVERY DAY 12/23 completed Not Available Not Available Not Available metformin ER 500 mg tablet,ex tended release 24 hr TAKE 1 TABLET BY MOUTH TWICE A DAY active Not Available Not Available No t Available cyclobenz aprine 5 mg tablet TAKE 1 TABLET BY MOUTH THREE TIMES A DAY NEEDED FOR MUSCLE SPASMS active Not Available Not Available No t Available levothyro xine 12/23 completed Not Available Not Available Not Available Maxalt 12/02 completed Not Available Not Available Not Available metformin 12/23 completed Not Available Not Available Not Available mometason e 0.1 % topical solution APPLY TOPICALL Y ONCE DAILY TO SCALP UNTIL CLEAR BUT NO LONGER THAN 2 WEEKS 12/23 completed Not Available Not Available Not Available Xarelto 10 mg tablet TAKE 1 TABLET BY MOUTH EVERY DAY START 24HRS AFTER SURGERY 05/29 completed Not Available Not Available Not Available Farxiga 10 mg tablet TAKE 1 TABLET BY MOUTH EVERY DAY 12/23 completed Not Available Not Available Not Available Vitals Date Recorded Body height Body mass index (BMI) Body weight Systolic blood pressure Diastolic blood pressure Provider Name and Address Organization Details Last Updated DateTime 12/03/2019 1889.76 cm 0.2 kg/m2 15110.33 g 143 mm[Hg] 81 mm[Hg] Nancy Dia [facility] 0 12:52:19 Date Recorded Body height Body mass index (BMI) Body weight Systolic blood pressure Diastolic blood pressure Provider Name and Address Organization Details Last Updated DateTime 12/23/2020 154.94 cm 35.3 kg/m2 95768.77 g 135 mm[Hg] 78 mm[Hg] [facility] 1 11:48:32 Date Recorded Body height Body mass index (BMI) Body weight Systolic blood pressure Diastolic blood pressure Provider Name and Address Organization Details Last Updated DateTime 01/11/2022 154.94 cm 34 kg/m2 43890.63 g 140 mm[Hg] 82 mm[Hg] [facility] 2 12:52:58 Date Recorded Body height Body mass index (BMI) Body weight Systolic blood pressure Diastolic blood pressure Provider Name and Address Organization Details Last Updated DateTime 05/29/2024 154.94 cm 31.4 kg/m2 56517.33 g 138 mm[Hg] 72 mm[Hg] Shital Chow [facility] 4 12:42:59 Social History Question Answer Notes LastModified by Organizat ion Details LastModified Time Tobacco Smoking Status Never Smoker Nancy perales [facility] 12/03/2019 12:47:09 Are You Blind Or Do You Have Difficulty Seeing? No Information not available 12/23/2020 What Is Your Level Of Caffeine Consumption? Moderate Information not available 12/23/2020 Are You Deaf Or Do You Have Serious Difficulty Hearing? No Information not available 12/23/2020 What Type Of Diet Are You Following? REGULAR Information not available 12/23/2020 Do You Use Your Seat Belt Or Car Seat Routinely? Yes Information not available 12/23/2020 Are You Sexually Active? No Information not available 12/23/2020 Do You Have Smoke And Carbon Monoxide Detectors In Your Home? Yes Information not available 12/23/2020 Do You Use Sunscreen Routinely? Yes Information not available 12/23/2020 Do You Have Difficulty Walking Or Climbing Stairs? No Information not available 01/11/2022 Sex: Unknown Functional Status Question Answer Note LastModified by Organizat ion Details LastModified Time Do you use any illicit or recreational drugs? No Information not available 12/23/2020 What is your level of alcohol consumption? Occasional Information not available 12/23/2020 Are you able to walk? YESWOREST Information not available 12/23/2020 Are you able to care for yourself? Yes Information n ot available 01/11/2022 Do you have difficulty dressing or bathing? No Information not available 01/11/2022 What is your exercise level? Occasional Information not available 12/23/2020 Mental Status Question Answer Note LastModified by Organization D etails LastModified Time Do you feel stressed (tense, restless, nervous, or anxious, or unable to sleep at night)? [id number] Information not available 12/23/2020 Family History Relationship Description Onset Age of this Age Resolved Age Notes LastModified by Organization Details LastModified Time Brother Diabetes mellitus [email or web address] Not available 2019 12:46:05 Brother Hypertensive disorder [email or web address] Not available 2019 12:46:24 Brother Toxic hepatitis [email or web address] Not available 2019 12:47:05 Father Hypertensive disorder [email or web address] Not available 2019 12:46:24 Sister Hypertensive disorder [email or web address] Not available 2019 12:46:24 Maternal Grandmother Carcinoma in situ of breast [email or web address] Not available 2019 12:46:54 Mother Carcinoma in situ of breast [email or web address] Not available 2019 12:46:54 Maternal Aunt Carcinoma in situ of breast [email or web address] Not available 2019 12:46:54 Unspecified Relation Carcinoma in situ of breast matern al cousin Not available 01/11/2022 12:55:15 Medical History Condition Response Allergies (Food, seasonal, environmental ) N Other N Breast Cancer N Drug/Latex Allergies/Reactions N Blood Transfusion N Dermatologic Disorders N Lung Disease N Defects or Inherited Disease N Breast Problem N Gestational Diabetes N Hematologic disorders N Anesthesia Complications N History of STI N Deep Vein Thrombosis N Polycystic ovary syndrome N Anxiety Disorder N Autoimmune disease N Arthritis Y Infertility N Polyps N Acid Reflux (GERD) N History of abnormal pap N Cancer N Stroke N Varicosities N Neurologic/Epilepsy N Endometriosis N High Cholesterol N Headaches Y Fibromyalgia N Kidney Disease N Heart Problems N Kidney or Bladder Problems N Thyroid Problems Y GI Problems N Eating Disorder N Anemia N Art (IVF or FET) N Psychiatric Illness N Ovarian Cancer N Diabetes Y Pulmonary (TB, Asthma) N Hepatitis/Liver Disease N No Past Medical History N Eczema N Urinary Tract Infection N Abuse/Domestic Violence N Asthma N Trauma/Violence N Depression/ depression N Heart Disease N Pre-Eclampsia N Hypertension N Osteoporosis N Thrombophilias N Gynecological History Statement/Question Response Abnormal Pap N Date of Last Mammogram 06/25/2021 STIs/STDs N 09/29/2014 Current Control Method Menopause 13 If Post Menopausal, Age at Menopause 52 Sexually Active? N Date of DEXA bone scan 07/07/2020 Date of Last Pap Smear 01/11/2022 Sexual Problems? N LMP Unknown Obstetrics History GPAL:G 2 P 2 0 0 2 Type Value Full Term 2 Living 2 Total 2 Past Encounters Encounter ID Performer Location Encounter Start Date Encounter Closed Date Diagnosis/Indication Diagnosis SNOMED-CT Code Diagnosis ICD10 Code Diagnosis Note [id number] [facility] [address] [address] 12/03/2019 12:39:08 12/05/2019 16:41:31 Gynecologic examination 89550297 Z01.419 Take Calcium with Vitamin D 12-1500mg daily. Do monthly self breast exams. It is advised to get annual flu shot in the fall and she could obtain at [facility] or [facility] clinic. If you haven't received the Tdap vaccine in the last 10 years you should obtain one as well. Have mammogram yearly, bone density every 2-3 years and colonoscop y every 5-10 years depending on findings and history. Engage in daily exercise of low impact aerobic exercise 45-60 minutes 4-5 times weekly. Avoid tobacco and illicit drugs as well as using moderation with alcohol intake less than 1-2 8 oz beverages daily. This lifestyle behavior pattern will lead to less health conditions and longer life span. If BMI greater than 25 weight watchers or dietary consult advised. Questions have been answered. Patient appears to understand instructio ns, but if you have any further questions call or respond to this email We reviewed asccp pap guidelines and d/c age 64yo with normal pap/HPV Hx patient opts to proceed with pap this year. Understand s insurance may/may not pay for this test. She agrees. Mammo ordered Dexa ordered UTD colonoscop y wnl Screening for osteoporosis [id number] Z13.820 [id number] Radha Horowitz , [facility] [address] [address] 12/23/2020 11:34:34 12/23/2020 12:11:10 Gynecologic examination 64963074 Z01.419 Take Calcium with Vitamin D 12-1500mg daily. Do monthly self breast exams. It is advised to get annual flu shot in the fall and she could obtain at [facility] or [facility] care clinic. If you haven't received the Tdap vaccine in the last 10 years you should obtain one as well. Have mammogram yearly, bone density every 2-3 years and colonoscop y every 5-10 years depending on findings and history. Engage in daily exercise of low impact aerobic exercise 45-60 minutes 4-5 times weekly. Avoid tobacco and illicit drugs as well as using moderation with alcohol intake less than 1-2 8 oz beverages daily. This lifestyle behavior pattern will lead to less health conditions and longer life span. If BMI greater than 25 weight watchers or dietary consult advised. Questions have been answered. Patient appears to understand instructio ns, but if you have any further questions call or respond to this email Colon-UTD PCPMammo UTD ([facility]-pro minent family hx breast cancer)Vul maurilio check wnl Postmenopa usal osteopenia [id number] M85.80 DExa managed by PCP [id number] BO [facility] [address] [address] 01/11/2022 12:31:26 01/13/2022 11:25:13 Gynecologic examination [id number] Z01.419 Take Calcium with Vitamin D 12-1500mg daily. Do monthly self breast exams. It is advised to get annual flu shot in the fall and she could obtain at [facility] or [facility]. If you haven't received the Tdap vaccine in the last 10 years you should obtain one as well. Have mammogram yearly, bone density every 2-3 years and colonoscop y every 5-10 years depending on findings and history. Engage in daily exercise of low impact aerobic exercise 45-60 minutes 4-5 times weekly. Avoid tobacco and illicit drugs as well as using moderation with alcohol intake less than 1-2 8 oz beverages daily. This lifestyle behavior pattern will lead to less health conditions and longer life span. If BMI greater than 25 weight watchers or dietary consult advised. Questions have been answered. Patient appears to understand instructio ns, but if you have any further questions call or respond to this email Pap/hpv USPSTF recommends against screening for cervical cancer in women older than 65yo, those who've had a hysterecto my for non-cancer indication s, & who have had adequate prior screening & are not otherwise at high risk for cervical cancer. STD Screen declined Genetic Screen discussed Colon Screen UTD PCP Dexa Screen UTD PCP Routine Labs UTD PCPMammo ordered [id number] Nathaneil Sandra MD [place] [address] [address] 05/29/2024 12:33:05 05/29/2024 13:50:52 Gynecologic examination [id number] Z01.419 WWEpostmen opausalPap - not indicated todaySTI screen - declinedMa mmogram - order givenColon cancer screening - UTDDexa - order givenRouti ne labs - UTD/PCPRTC in 1 yr or sooner if needed Do monthly self breast exams.It is advised to get annual flu shot in the fall and she could obtain at local pharmacy. If you haven't received the Tdap vaccine in the last 10 years you should obtain one as well.Have mammogram yearly, bone density every 2-3 years and stay up to date on colon cancer screening. Engage in regular exercise. Avoid tobacco and illicit drugs. This lifestyle behavior pattern will lead to less health conditions and longer life span. If BMI greater than 25 dietary consult advised.Qu estions have been answered. Screening for malignant neoplasm of breast [id number] Z12.39 Screening for osteoporosis [id number] Z13.820 Health Concerns Section Related Observation LastModified by Organization Detai ls LastModified Time None Recorded Concern Status LastModified by Organization Details LastModified Time None Recorded Advance Directives Directive None Recorded Payers Encounter Date Sequence Insurance Name Policy Number Policy Garnett Covered Member ID Garnett Member ID Guarantor Name 12/03/2019 1 [place] [id number] Alice Lewis-Pa tton [id number] 12/23/2020 1 [place] [id number] Alice Lewis-David tton [id number] 01/11/2022 1 [place] Alice Ferro [id number] 01/11/2022 2 [employer] (MEDICARE SUPPLEMENT) Dieter Ferro [id number] 05/29/2024 1 [employer] (MEDICARE REPLACEMENT/ ADVANTAGE - PPO) Alice Ferro [id number] Notes Date Note Type Note Provider Name and Address Organization Details Recorded Time 0 text/html Annual GYNReported bypatient.History:no gynecologic complaints Menstrual cycle:Normal menses Urinary symptoms:No hematuria; No incontinence Vulva:No genital lesion Vagina:Normal vaginal discharge Breast:No breast pain; No breast lump; No nipple discharge Sexual complaints:No sexual complaints; No pain during intercourse; Normal libido Menopausal Symptoms:No menopausal symptoms; Normal vaginal lubrication Psychological symptoms:No depression; No anxiety; No PMDD Preventive measures:Encourage self breast examination; Encourage regular exercise; Encourage no tobacco use; Encourage regular mammograms starting age 40; Needs to schedule mammogram; Up to date on colonoscopy screeningNotes:Dexa scan due See's breast specialist [facility] for her breast care & prominent fam Hx of breast cancer She prefers to have a pap this year. AMANDA [address], [place], [address], [facility] 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 Post-MenopausalReported bypatient.Menopausal Symptoms:no menopausal symptoms; normal vaginal lubrication Vaginal Bleeding:history of menopause having occurred; no history of post menopausal bleeding Urinary Symptoms:no hematuria; no incontinence; no nocturia; no urinary frequency Vulva:no genital lesion; no vulvar atrophy Vagina:normal vaginal discharge; no vaginal atrophy Breast:no breast lump; no nipple discharge; no breast pain Sexual Complaints:no sexual complaints Psychological Symptoms:no depression; no anxiety Preventive Measures:encourage regular mammograms starting age 40; encourage self breast examination; encourage regular exercise; encourage no tobacco use; mammogram performed within the past year; history of recent colonoscopy [address], [place], [address], [facility] 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 Post-MenopausalReported bypatient.Menopausal Symptoms:no menopausal symptoms; normal vaginal lubrication Vaginal Bleeding:history of menopause having occurred; no history of post menopausal bleeding Urinary Symptoms:no hematuria; no incontinence; no nocturia; no urinary frequency Vulva:no genital lesion; no vulvar atrophy Vagina:normal vaginal discharge; no vaginal atrophy Breast:no breast lump; no nipple discharge; no breast pain Sexual Complaints:no sexual complaints Psychological Symptoms:no depression; no anxiety Preventive Measures:encourage regular mammograms starting age 40; encourage self breast examination; encourage regular exercise; encourage no tobacco use; needs to schedule mammogram; history of recent colonoscopy; needs to schedule bone density [address], [place], [address], [facility] 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 Post-MenopausalReported bypatient.Menopausal Symptoms:no menopausal symptoms; normal vaginal lubrication Vaginal Bleeding:history of menopause having occurred; no history of post menopausal bleeding Urinary Symptoms:no hematuria; no incontinence; no nocturia; no urinary frequency Vulva:no genital lesion; no vulvar atrophy Vagina:normal vaginal discharge; no vaginal atrophy Breast:no breast lump; no nipple discharge; no breast pain Sexual Complaints:no sexual complaints Psychological Symptoms:no depression; no anxiety Preventive Measures:encourage regular mammograms starting age 40; encourage self breast examination; encourage regular exercise; encourage no tobacco use; mammogram performed within the past year; history of recent colonoscopy; needs to schedule bone densityNotes:68yo wwepostmenopausalno h/o abnormal papsmammogram UTDdexa olonoscopy UTD BO [address], [place], [address], [facility] 05/29/2024 13:43:26 OBGyn Episode Ob Episode Information Episode Created Date Number of Fetuses Patient Bloodtype Patient rh Status Prepregnancy Weight lbs Domestic Partner Domestic Partner Phone Father Name Side Seam Tender Status 12/03/19 20 1 CLOSED Fetus Data First Name Last Name Admitted to NICU Weight (g) Sex Living Outcome Pediatric Complications Fetus ID Race Codes Race Delivery Type [id number] Viraj Calculation Initial Viraj Date Initial Exam Date Initial Exam Provider Initial Ultrasound Date Last Menstrual Period Date Ultra Sound Weeks Gestation 0 Eighteen To Twenty Week Viraj Update Ultra Sound Date Fundal Height At Umbil Quickening Date Ultra Sound Latest Weeks Gestation Final Viraj Confirmed By Final Viraj Confirmed Date Final Viraj Date Ultra Sound Latest Days Gestation 0 0 Menstrual History Last Menstrual Date Menses Monthly On Bcp Conception Prior Menses Frequency Hcg Plus Date Menarche Onset Age Delivery Information Delivery Date Delivery Type Labor Anesthesia Weeks Gestation Incision Type Labor Labor Length Hrs Delivered By Post Complications Tubal Sterilization Discharge Date Comments Discharge Information Feeding Method Contraceptive Method Maternal HG B and HCT Levels Ob Episode Information Episode Created Date Number of Fetuses Patient Bloodtype Patient rh Status Prepregnancy Weight lbs Domestic Partner Domestic Partner Phone Father Name Side Seam Tender Status 12/03/19 20 1 CLOSED Fetus Data First Name Last Name Admitted to NICU Weight (g) Sex Living Outcome Pediatric Complications Fetus ID Race Codes Race Delivery Type [id number] Viraj Calculation Initial Viraj Date Initial Exam Date Initial Exam Provider Initial Ultrasound Date Last Menstrual Period Date Ultra Sound Weeks Gestation 0 Eighteen To Twenty Week Viraj Update Ultra Sound Date Fundal Height At Umbil Quickening Date Ultra Sound Latest Weeks Gestation Final Viraj Confirmed By Final Viraj Confirmed Date Final Viraj Date Ultra Sound Latest Days Gestation 0 0 Menstrual History Last Menstrual Date Menses Monthly On Bcp Conception Prior Menses Frequency Hcg Plus Date Menarche Onset Age Delivery Information Delivery Date Delivery Type Labor Anesthesia Weeks Gestation Incision Type Labor Labor Length Hrs Delivered By Post Complications Tubal Sterilization Discharge Date Comments 8 Discharge Information Feeding Method Contraceptive Method Maternal HG B and HCT Levels
--- OUTSIDE RECORDS SUMMARY | 2024-11-27 00:16 | XMS_ITS | Clinical Summary ---
Author Organization [facility] Address [address] [place] [address] Care Team Providers Care Emergency Response Coordinator Name Role Phone Monico Lay MD Primary Care Provider [phone] Allergies Active Allergy Reactions Criticality Noted Date [...] Fibrocystic breast changes of both breasts 03/28 Family History Medical History Relation Name Comments Breast cancer Cousin age unknown Breast cancer Maternal Grandmother age un known Breast cancer Mother Adenocarcinoma of breast - (Added by TW Conv) Breast cancer Mother's Sister Relation Name Status Comments Cousin Maternal Grandmother Mother Mother's Sister Social History Tobacco Use Types Packs/Day Years [...] on file 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 Gender Identity Not on file Sexual Orientation Not on file Obstetrics History Last Filed Vital Signs Vital Sign Reading Time Taken Comments Blood Pressure - - Pulse - - Temperature - - Respiratory Rate - - Oxygen Saturation - - Inhaled Oxygen Concentration - - Weight 90.7 kg (200 lb) 11/07/2022 1:42 PM CDT Height 160 cm (5' 3) 11/07/2022 1:42 PM CDT Body Mass Index 35.43 11/07/2022 1:42 PM CDT Plan of Treatment Health Maintenance Due Date Last Done Comments Colon Cancer Screening-Colonoscopy 1954 Depression Screening 1954 Fall Risk Assessment 1954 Hepatitis C Screening 1954 Osteoporosis Screening-Bone Density Scan 1954 DTaP/Tdap/Td Vaccine (1 - Tdap) 1965 Hepatitis B Screening 1972 Pneumococcal vaccine 65+ (1 of 1 - PCV) 2004 Zoster Vaccine (1 of 2) 2004 Well Visit 65+ 09/05/2019 Breast Cancer Screening-Mammogram 11/26/2024 11/27/2023, 11/07/2022, 11/02/2021, Additional history exists Influenza Vaccine (Season Ended) 2025 Procedures Procedure Name Priority Date/Time Associated Diagnosis [...] compared to prior imaging studies performed at [facility] on 09/08/2020, 11/02/2021 and 11/07/2022. There [...] compared to prior imaging studies performed at [facility] on 09/08/2020, 11/02/2021 and 11/07/2022. There are scattered areas of fibroglandular density. There is no suspicious abnormality in either breast. Impression: There is no mammographic evidence of malignancy. Annual screening mammography is recommended. OVERALL FINAL ASSESSMENT: BI-RADS CATEGORY 1: Negative. Mary Rogers NP IMG MAMMO PROCEDURES Fin al Result from Last 3 Months or Most Recently Relevant to Health Maintenance Insurance HUMAN CHOICE MEDICARE PPO [facility] CHOICE PLUS CHOICE [facility] [place]PO [place] ANTH ACCESS Member Subscriber Plan / Payer (Ef fective 2018-) Name:DebrabessyEliudFerroTessa samaniego Relation to Subscriber:Self Name:Zaidaden Tessa J Payer ID:[id number] (NAIC) Type:[employer] Address: [address] MEDICARE MEDICARE [employer] CHOICE MEDICARE PPO Care Teams Emergency Response Coordinator Relationship Specialty Start Date End Date Monico Lay MD [address] [id number] PCP - General 08/15/19
--- OUTSIDE RECORDS SUMMARY | 2024-11-27 00:16 | XMS_ITS | Encounter Summary ---
Author Organization [facility] Address [address] [place] [address] Care Team Providers Care Desk Clerks Supervisor Name Role Phone Marin Mcpherson MD Primary Care Provider [phone] Encounter Details Date Type Department Care Team (Late st Contact Info) Description 11/12/2001 Outpatient Historical [facility] ([facility]t [facility]iology[facility]) [address] 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
--- OUTSIDE RECORDS SUMMARY | 2024-11-27 00:16 | XMS_ITS | Encounter Summary ---
Author Organization [facility] Address 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
--- OUTSIDE RECORDS SUMMARY | 2024-11-27 00:16 | XMS_ITS | Encounter Summary ---
Author Organization [facility] Address [address] [place] [address] Care Team Providers Care Steel Rule Inspector Name Role Phone Marin Mcpherson MD Primary Care Provider [phone] Encounter Details Date Type Department Care Team (Late st Contact Info) Description 06/12/2005 Outpatient Historical [facility] Support [facility] ([facility]t [facility]) [address] 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
--- OUTSIDE RECORDS SUMMARY | 2024-11-27 00:16 | XMS_ITS | Encounter Summary ---
Author Organization [facility] Address 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 Gender Identity Not on file Sexual Orientation Not on file documented as of this encounter Plan of Treatment Not on file documented as of this encounter Procedures Procedure Name Priority Date/Time Associated Diagnosis Comments CBC WITH DIFFERENTIAL Routine 08/08/2005 9:54 AM SUPERVISOR CARBON PAPER COATING CBC WITH DIFFERENTIAL Routine 08/08/2005 9:54 AM SUPERVISOR CARBON PAPER COATING POC , URINE Routine 08/08/2005 9:54 AM SUPERVISOR CARBON PAPER COATING documented in this encounter Results * POC , URINE (08/08/2005 9:54 AM SUPERVISOR CARBON PAPER COATING) HCG QUAL URINE Negative Negative INTER FACE SYSTEM SPECIFIC GRAVITY UA 1.020 1.001 - 1.035 INTERFACE SYSTEM 08/08/2005 9:54 AM SUPERVISOR CARBON PAPER COATING us Gustavo Ojeda MD POINT OF CARE TESTING Final Res ult Performing Organization Address [facility] Phone Number INTERFACE SYSTEM Refer to clinic/hospital department * (ABNORMAL) CBC WITH DIFFERENTIAL (08/08/2005 9:54 AM SUPERVISOR CARBON PAPER COATING) NEUTROPHILS 46 45 - 70 % INTERFAC E SYSTEM LYMPHOCYTES 44 16 - 45 % INTERFAC E SYSTEM MONOCYTES 8 3 - 13 % INTERFACE SYSTEM EOSINOPHILS 1 0 - 7 % INTERFAC E SYSTEM BASOPHILS 0 0 - 2 % INTERFACE SYSTEM NEUTROPHIL ABSOLUTE 5.45 1.90 - 7.00 K/uL INTERFACE SYSTEM LYMPHOCYTE ABSOLUTE 5.19(H) 0.70 - 4.50 K/uL INTERFACE SYSTEM MONOCYTE ABSOLUTE 0.99 0.10 - 1.30 K/uL INTERFACE SYSTEM EOSINOPHIL ABSOLUTE 0.11 0.00 - 0.70 K/uL INTERFACE SYSTEM BASOPHILS ABSOLUTE 0.05 0.00 - 0.20 K/uL INTERFACE SYSTEM 08/08/2005 9:54 AM SUPERVISOR CARBON PAPER COATING Gustavo Ojeda MD HEMATOLOGY ORDERABLES Final Res ult Performing Organization Address [facility] Phone Number INTERFACE SYSTEM Refer to clinic/hospital department * (ABNORMAL) CBC WITH DIFFERENTIAL (08/08/2005 9:54 AM SUPERVISOR CARBON PAPER COATING) WBC 11.8(H) 4.0 - 9.8 K/uL INTERFACE SYSTEM RBC 4.23 3.90 - 4.90 M/uL INTERFACE SYSTEM HEMOGLOBIN 13.3 11.8 - 14.8 g/dL INTERFACE SYSTEM HEMATOCRIT 39.1 35.5 - 44.0 % INTERFACE SYSTEM MCV 92.4 82.0 - 99.0 fL INTERFACE SYSTEM MCH 31.4 27.2 - 32.6 pg INTERFACE SYSTEM MCHC 34.0 31.5 - 35.5 % INTERFACE SYSTEM RDW 13.6 11.5 - 14.5 % INTERFACE SYSTEM RDW-STDEV 45.8 37.1 - 48.7 fL INTERFACE SYSTEM PLATELETS 319 140 - 350 K/uL INTERFACE SYSTEM MPV 9.8 9.3 - 12.4 fL INTERFACE SYSTEM 08/08/2005 9:54 AM SUPERVISOR CARBON PAPER COATING Gustavo Ojeda MD HEMATOLOGY ORDERABLES Final Res ult INTERFACE SYSTEM Refer to clinic/hospital department documented in this encounter Visit Diagnoses Diagnosis Persistent postoperative fistula, 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
[2024-11-27 11:30] VITALS: BP 131/68; PULSE 84; RESP 18; TEMP 36.2; O2SAT 98
--- NOTE | 2024-11-27 11:49 | WPDANESEPPF ---
Anes - Initial Pre Proc Eval Procedure: Operation Date: 11/27/24 12:30 Proposed Procedures p Screening Colonoscopy - Pankaj Richey MD Date/Time: 11/27/24 11:49 Surgeon: Pankaj Richey MD Pre Op Diagnosis: screening Patient Data Age: 69 Gender: F Height: 1.57 m Weight: 74.5 kg Last Vital Signs Temp 97.2 F L 11/27/24 11:30 Pulse 84 11/27/24 11:30 Resp 18 11/27/24 11:30 BP 131/68 11/27/24 11:30 Pulse Ox 98 11/27/24 11:30 O2 Del Method Room Air 11/27/24 11:30 Allergies Allergy/AdvReac Type Severity Reaction Status Date / Time ampicillin AdvReac Unknown Rash Verified 11/27/24 11:22 erythromycin base AdvReac Unknown Rash Verified 11/27/24 11:22 Penicillins AdvReac Unknown Rash Verified 11/27/24 11:22 Home Medications ?Medication ?Instructions ?Recorded ?Confirmed ?Type levothyroxine 88 mcg tablet 88 mcg PO QAM #90 tabs 08/12/24 11/27/24 Rx metformin 500 mg tablet,extended 500 mg PO BID #180 tabs 08/12/24 11/27/24 Rx release 24 hr rizatriptan 10 mg tablet (Maxalt) See Rx Instructions PO .COMPLEX #9 08/20/24 11/20/24 Rx tabs meloxicam 15 mg tablet 15 mg PO QAM PRN pain 11/20/24 11/27/24 History Patient hx anesthesia problems: none Family hx anesthesia problems: none Results Review: All pre-operative results and documents have been reviewed as part of the pre-operative evaluation. [facility] Past Medical History Medical History Acute left-sided low back pain without sciatica (~01/2023) BMI 29.0-29.9,adult Overweight (BMI 25.0-29.9) Lipoma of back (~08/02/23) left lower thoracic area 3 cm Seborrheic keratosis on trunk and scalp BMI 30.0-30.9,adult Benign paroxysmal positional vertigo due to bilateral vestibular disorder At low risk for fall Breast cancer screening by mammogram mammogram 11/07/2022 unremarkable. Normal mammogram 11/27/2023. Screening for diabetic retinopathy no diabetic retinopathy on 01/30/2022. No retinopathy on 02/27/2023. Obesity (BMI 30.0-34.9) Right shoulder pain (~11/2021) x-ray of the right shoulder on 07/25/2022 with mild osteoarthritis, osteopenia, degenerative disc disease of the thoracic spine, right mid lung granuloma. BMI 32.0-32.9,adult Bunion, left foot Diabetes type 2, controlled Irritable bowel syndrome with diarrhea BMI 34.0-34.9,adult Skin lesion Screening for osteoporosis (07/07/20) T-score 1.16 of the spine and 1.0 left hip and 1.0 right hip Adult BMI 33.0-33.9 kg/sq m COVID-19 (~02/13/20) Acute bronchitis Controlled diabetes mellitus, without long-term current use of insulin Glucose 128 with hemoglobin A1c 6.1 on 01/14/2022. Glucose 124 with hemoglobin A1c 6.3 on 07/19/2022. fasting glucose 125 with hemoglobin A1c 6.1 and urine microalbumin ratio of 11 on 01/25/2023. glucose 119 with hemoglobin A1c 6.0 on 07/31/2023. glucose 107, hemoglobin A1c 6.2, GFR 82, microalbumin ratio of 12 on 02/20/2024. Fasting glucose 115 with hemoglobin A1c 6.2 and GFR 79 on 09/18/2024. Migraine without aura and responsive to treatment Encounter for wellness examination in adult Colon cancer screening Normal colonoscopy with Dr. Reyes at age 61 with recheck in 10 years Hypersomnia Mixed hyperlipidemia Total cholesterol 188, triglycerides 96, HDL 59 and LDL 110 on 01/14/2022. Cholesterol 201, triglycerides 121, HDL 67, LDL 111 on 07/19/2022. cholesterol 201, HDL 68, triglycerides 104, LDL 112 with ratio 3.0 on 01/25/2023. Cholesterol 191, HDL 64, triglycerides 87, LDL 109 with ratio 3.0 on 07/31/2023. Cholesterol 190, triglycerides 110, HDL 71, LDL 98 with ratio 2.7 on 02/20/2024. Cholesterol 206, triglycerides 119, HDL 69, LDL 114 with ratio 3.0 on 09/18/2024. Hypothyroidism, unspecified TSH 0.89 with free T4 at 1.4 on 01/14/2022. TSH 0.57 on 01/25/2023. TSH 1.13 on 02/20/2024. TSH 1.72 on 09/18/2024. Osteoarthritis involving multiple joints on both sides of body Abnormal fasting glucose Seasonal allergic rhinitis GERD (gastroesophageal reflux disease) Thyroid disorder Chronic headaches Surgical History Surgical History H/O section (~1986) 2 one in 1986 and one in 1987 Hx of LASIK (~2001) History of cholecystectomy (~1994) Family History Family History Mother , 53 Breast cancer, Onset Age: 53 Father , 82 Throat cancer Hypertension Grandparent Breast cancer Sibling Throat cancer Liver failure Sibling Hypertension Social History Social History Smoking status: Never smoker Second hand tobacco smoke exposure: No Alcohol intake: never Substance use: never Substance use type: does not use Lack of Transportation: No Lack of Food: Never True Current Housing: I Have Housing Concerned About Future Housing: No Difficulty Paying Gas/Electric Bills: No Difficulty Paying for Meds: No Currently Unemployed: No Education: High School Diploma/GED Difficulty w/ Childcare or Family Care: No Living arrangements: with family Spiritual care concerns: No Anes - Eval Final PreProcedure Day of Procedure 11/27/24 11:49 Patient weight: obese Lungs: normal air movement Airway: Mallampati scale class II Neurological: alert and oriented Last oral intake: >/= 8 hours ASA classification: III Emergent: no Anesthetic plan: proceed Anesthesia type and monitoring: general GIVS and standard monitoring Results Review: All pre-operative results and documents have been reviewed as part of the pre-operative evaluation. HTN, hyperlipidemia, DM, hypothyroidism, BMI 30. Informed Consent: The patient's anesthetic plan and its attendant risks and benefits were discussed with the patient/family/POA. Questions were solicited and answers provided to the satisfaction of the patient/family/POA.
[2024-11-27] MEDS: LACTATED RINGERS 1,000 ML 150 ML IV CONT (11:51)
[2024-11-27 11:52] LABS: Glucose Point of Care 116 mg/dl (65-105)
--- NOTE | 2024-11-27 12:55 | PM.HPGS ---
History of Present Illness History of Present Illness Consent: Risks, benefits, and alternatives have been discussed and questions answered. Patient agrees to proceed with procedure. Chief complaint: screening Narrative: Alice Ferro is a 69 year old female here for screening colonoscopy, last 7 years ago Review of Systems Review of Systems: All systems reviewed & are unremarkable except as noted in HPI and below PMFSH Past Medical History Medical History Acute left-sided low back pain without sciatica (~01/2023) BMI 29.0-29.9,adult Overweight (BMI 25.0-29.9) Lipoma of back (~08/02/23) left lower thoracic area 3 cm Seborrheic keratosis on trunk and scalp BMI 30.0-30.9,adult Benign paroxysmal positional vertigo due to bilateral vestibular disorder At low risk for fall Breast cancer screening by mammogram mammogram 11/07/2022 unremarkable. Normal mammogram 11/27/2023. Screening for diabetic retinopathy no diabetic retinopathy on 01/30/2022. No retinopathy on 02/27/2023. Obesity (BMI 30.0-34.9) Right shoulder pain (~11/2021) x-ray of the right shoulder on 07/25/2022 with mild osteoarthritis, osteopenia, degenerative disc disease of the thoracic spine, right mid lung granuloma. BMI 32.0-32.9,adult Bunion, left foot Diabetes type 2, controlled Irritable bowel syndrome with diarrhea BMI 34.0-34.9,adult Skin lesion Screening for osteoporosis (07/07/20) T-score 1.16 of the spine and 1.0 left hip and 1.0 right hip Adult BMI 33.0-33.9 kg/sq m COVID-19 (~02/13/20) Acute bronchitis Controlled diabetes mellitus, without long-term current use of insulin Glucose 128 with hemoglobin A1c 6.1 on 01/14/2022. Glucose 124 with hemoglobin A1c 6.3 on 07/19/2022. fasting glucose 125 with hemoglobin A1c 6.1 and urine microalbumin ratio of 11 on 01/25/2023. glucose 119 with hemoglobin A1c 6.0 on 07/31/2023. glucose 107, hemoglobin A1c 6.2, GFR 82, microalbumin ratio of 12 on 02/20/2024. Fasting glucose 115 with hemoglobin A1c 6.2 and GFR 79 on 09/18/2024. Migraine without aura and responsive to treatment Encounter for wellness examination in adult Colon cancer screening Normal colonoscopy with Dr. Reyes at age 61 with recheck in 10 years Hypersomnia Mixed hyperlipidemia Total cholesterol 188, triglycerides 96, HDL 59 and LDL 110 on 01/14/2022. Cholesterol 201, triglycerides 121, HDL 67, LDL 111 on 07/19/2022. cholesterol 201, HDL 68, triglycerides 104, LDL 112 with ratio 3.0 on 01/25/2023. Cholesterol 191, HDL 64, triglycerides 87, LDL 109 with ratio 3.0 on 07/31/2023. Cholesterol 190, triglycerides 110, HDL 71, LDL 98 with ratio 2.7 on 02/20/2024. Cholesterol 206, triglycerides 119, HDL 69, LDL 114 with ratio 3.0 on 09/18/2024. Hypothyroidism, unspecified TSH 0.89 with free T4 at 1.4 on 01/14/2022. TSH 0.57 on 01/25/2023. TSH 1.13 on 02/20/2024. TSH 1.72 on 09/18/2024. Osteoarthritis involving multiple joints on both sides of body Abnormal fasting glucose Seasonal allergic rhinitis GERD (gastroesophageal reflux disease) Thyroid disorder Chronic headaches Surgical History Surgical History H/O section (~1986) 2 one in 1986 and one in 1987 Hx of LASIK (~2001) History of cholecystectomy (~1994) Family History Family History Mother , 53 Breast cancer, Onset Age: 53 Father , 82 Throat cancer Hypertension Grandparent Breast cancer Sibling Throat cancer Liver failure Sibling Hypertension Social History Social History Smoking status: Never smoker Second hand tobacco smoke exposure: No Alcohol intake: never Substance use: never Substance use type: does not use Lack of Transportation: No Lack of Food: Never True Current Housing: I Have Housing Concerned About Future Housing: No Difficulty Paying Gas/Electric Bills: No Difficulty Paying for Meds: No Currently Unemployed: No Education: High School Diploma/GED Difficulty w/ Childcare or Family Care: No Living arrangements: with family Spiritual care concerns: No Meds Home Medications and Allergies Home Medications ?Medication ?Instructions ?Recorded ?Confirmed ?Type levothyroxine 88 mcg tablet 88 mcg PO QAM #90 tabs 08/12/24 11/27/24 Rx metformin 500 mg tablet,extended 500 mg PO BID #180 tabs 08/12/24 11/27/24 Rx release 24 hr rizatriptan 10 mg tablet (Maxalt) See Rx Instructions PO .COMPLEX #9 08/20/24 11/20/24 Rx tabs meloxicam 15 mg tablet 15 mg PO QAM PRN pain 11/20/24 11/27/24 History Allergies Allergy/AdvReac Type Severity Reaction Status Date / Time ampicillin AdvReac Unknown Rash Verified 11/27/24 11:22 erythromycin base AdvReac Unknown Rash Verified 11/27/24 11:22 Penicillins AdvReac Unknown Rash Verified 11/27/24 11:22 Vital Signs Vital Signs - 24 hr 11/27/24 11:30 Temperature 97.2 F L Pulse Rate 84 Respiratory Rate 18 Blood Pressure 131/68 Pulse Oximetry 98 Oxygen Delivery Room Air Exam Const: General: comfortable and no acute distress HENMT: Face/Nose/Sinus: Normal nares present Eyes: General: appearance normal, both eyes and all related structures Neck: Neck: no JVD Resp: Auscultation: clear to auscultation bilaterally Cardio: Rate: regular rate Rhythm: regular rhythm GI: Inspection: non-distended GI Palp: Yes Soft to palpation Skin: General skin exam: normal color Neuro: General: gait normal Speech: normal speech Extrem: General: normal to inspection Psych: Mental Status: mental status grossly normal Assessment and Plan Assessment and plan (1) Colon cancer screening: Code(s): Z12.11 - Encounter for screening for malignant neoplasm of colon Status: Acute Assessment and Plan: colonoscopy
[2024-11-27 13:15] VITALS: BP 100/58; PULSE 66; RESP 18; O2SAT 99
[2024-11-27 13:25] VITALS: BP 108/67; PULSE 60; RESP 18; O2SAT 100
[2024-11-27 13:32] VITALS: BP 120/63; PULSE 60; RESP 18; O2SAT 100
== END 2024-11-27 13:51 | disposition home or self-care (01) ==
PROVIDERS: PCP Family Medicine; Visit Provider Internal Medicine Gastroenterology
PROC: 0DJD8ZZ Inspection of Lower Intestinal Tract, Via Natural or Artificial Opening Endoscopic (ICD-10-PCS; CPT 45378; principal; 2024-11-27 12:30)
DX: Z12.11 Encounter for screening for malignant neoplasm of colon (principal); K57.30 Diverticulosis of large intestine without perforation or abscess without bleeding; K64.4 Residual hemorrhoidal skin tags; E11.9 Type 2 diabetes mellitus without complications
CPT/HCPCS: G0121; 82948; J2003; J2704; J7120

== ENCOUNTER 2024-12-18 13:48 | Outpatient (CLI) | payer MEDICARE, SELFPAY ==
--- NOTE | ~2024-12-18 | DEXA_ITS ---
Bone Density Report Name: TESSA VELASQUEZ Age: 69 Sex: Female Ethnicity: White Date of : 1955 Indication: postmenopausal; screening for osteoporosis; height loss; Referring Provider: ERUM BHARDWAJ Study: Bone densitometry was performed. Exam Date: December 18, 2024 Accession number: [id number] Bone Density: Region BMD T-score Z-score Classification AP Spine(L1-L4) 1.178 1.2 3.3 Normal Femoral Neck (Left) 0.847 0.0 1.8 Normal Total Hip (Left) 1.012 0.6 2.1 Normal Femoral Neck (Right) 0.847 0.0 1.8 Normal Total Hip (Right) 0.988 0.4 1.9 Normal Total Hip Mean 1.000 0.5 2.0 Normal World Health Organization criteria for BMD impression classify patients as: Normal (T-score at or above -1.0), Osteopenia (T-score between -1.0 and -2.5), or Osteoporosis (T-score at or below -2.5). 10-year Fracture Risk: FRAX not reported because: All T-scores for Spine Total, Hip Total, Femoral Neck at or above -1.0 Clinical Information Provided by Patient: Has used the following medications: Vitamin D, Calcium Patient maximum height was 63 Menopause Age: 52 No regular weight bearing exercise Drinks caffeinated beverages Onset of menses at age 12 Number of children 2 Impression: The patient has normal bone mass. Discussion: BONE DENSITY IS ABOVE THE MINIMUM DESIRABLE LEVEL AT ALL SKELETAL SITES TESTED. This patient?s bone mineral density is above the minimum desirable level (T-score -1.0 or better) at all sites measured. The patient should follow a healthful lifestyle (good nutrition with adequate calcium and vitamin D, and appropriate weight-bearing exercise). Follow-Up: Consider repeating this study in 5 years or sooner if there is some new clinical indication. Reported by: ANTHONY on 12/18/2024 2:30:00 PM. Reviewed, dictated and finalized at location A.
== END 2024-12-18 13:49 | disposition home or self-care (01) ==
LOC: ANHIMG 13:51
PROVIDERS: PCP Family Medicine; Visit Provider Family Medicine
DX: Z78.0 Asymptomatic menopausal state (principal)
CPT/HCPCS: 77080